=== PATIENT | male | born 1940 | race Caucasian/White ===

== ENCOUNTER 2020-10-26 18:31 | Observation (INO) | payer MEDICARE ==
[2020-10-26] MEDS ORDERED: Sodium Chloride 0.9% 1000 ML 1,000 ML IV STA ×2 (18:40→20:31)
[2020-10-26] MEDS ORDERED: Zofran 4 MG/2 ML VIAL IV ONE (18:40)
[2020-10-26] MEDS ORDERED: Sodium Chloride 0.9% 1000 ML 1,000 ML ONE ×2 (18:41→20:29)
[2020-10-26] MEDS ORDERED: Zofran 4 MG/2 ML VIAL ONE (18:41)
[2020-10-26 18:56] LABS: Absolute Neutrophil Ct (ANC) 5.41 (1.4-6.9); BASOPHIL % 0.3 % (0.0-0.4); Basophil (Absolute #) 0.02 (0-0.4); Eosinophil % 0.6 % (0.00-5.0); Eosinophil (Absolute #) 0.04 (0-0.5); Lymphocyte (Absolute #) 0.94 (1.0-4.6); Lymphocytes % 13.8 % (24.0-44.0); Mean Cell Volume 91.3 fl (78-100); Mean Corpuscular Hemoglobin 29.7 pg (26-32); Mean Corpuscular Hgb Concent. 32.5 g/dl (32-36); Monocyte (Absolute #) 0.38 (0.0-1.3); Monocytes % 5.6 % (0.0-12.0); Neutrophil % 79.7 % (36.0-66.0); Platelet Count 124 K/mm3 (150-450); Red Blood Count 4.38 M/mm3 (4.1-5.6); White Blood Count 6.8 K/mm3 (4.0-10.5)
[2020-10-26 19:03] LABS: INR 1.17 (0.8-3.0); PROTIME 13.2 SECONDS (8.83-12.87)
[2020-10-26 19:07] LABS: ALBUMIN 4.4 g/dL (3.5-5.0); ANION GAP 20.5 MEQ/L (5-15); BILIRUBIN,TOTAL 1.5 mg/dL (0.2-1.3); Calcium 9.7 mg/dL (8.4-10.2); Creatinine 1 1.97 mg/dL (0.66-1.25); EST GLOMERULAR FILTRATION RATE 34.9 ML/MIN; Potassium 4.2 mmol/L (3.5-5.1); Total Protein 7.4 g/dL (6.3-8.2)
[2020-10-26] MEDS ORDERED: Hydromorphone 1 mg/ml Injection IV ONE (19:21)
[2020-10-26] MEDS ORDERED: Hydromorphone 1 mg/ml Injection ONE (19:25)
[2020-10-26 20:23] LABS: Appearance CLEAR (CLEAR); Bilirubin NEGATIVE (NEGATIVE); Blood NEGATIVE Ery/ul (0-5); Glucose NEGATIVE (NEGATIVE); Ketones TRACE (NEGATIVE); Leukocyte Esterase NEGATIVE (NEGATIVE); Mucus SLIGHT /HPF (NEGATIVE); Nitrite NEGATIVE (NEGATIVE); Protein,Urine Dip NEGATIVE (Negative); Urobilinogen NEGATIVE mg/dL (0-1)
--- NOTE | 2020-10-26 21:18 | ERPHSYRPT ---
- History of Present Illness Time Seen by Provider: 10/26/20 18:50 Historian: patient Exam Limitations: no limitations Patient Subjective Stated Complaint: pt here for vomiting dark red blood and has blood in stools.also co pain to abd. pt is a poor historian. Triage Nursing Assessment: pt alert, arrived per wc, resp easy,skin w/d/p. abd soft but tender to touch Physician History: Patient is a an 80-year-old male who presents with a weeks worth of abdominal pain nausea and vomiting his pain increased especially after eating. He also says he has been spitting up what looks to him to be blood and see also claims t o have some blood in his stools. He does have a history of prostate cancer diabetes hypertension hyperlipidemia and pulmonary emboli in the past. He is on Eliquis presently has anticoagulation. He denies any fever or chills but has had some sweats he rates his pain 10 of 10. Timing/Duration: week(s) (1) Activities at Onset: none Quality: cramping Abdominal Pain Onset Location: RUQ Pain Radiation: periumbilical Severity of Pain-Max: severe Severity of Pain-Current: mild Modifying Factors: Improves With: eating, urinating Associated Symptoms: diaphoresis, nausea, vomiting Previous symptoms: no prior history Allergies/Adverse Reactions: Penicillins Allergy (Verified 10/26/20 18:41) Hives Sulfa (Sulfonamide Antibiotics) [Sulfa(Sulfonamide Antibiotics)] Allergy (Verified 10/26/20 18:41) Hives Hx Tetanus, Diphtheria Vaccination/Date Given: Yes Hx Influenza Vaccination/Date Given: No Hx Pneumococcal Vaccination/Date Given: Yes Immunizations Up to Date: Yes Travel Risk - International Travel Have you traveled outside of the country in past 3 weeks: No - Coronavirus Screening Are you exhibiting any of the following symptoms?: No Close contact with a COVID-19 positive Pt in past 14-21 Days: No - Review of Systems Constitutional: Night Sweats, No Fever, No Chills Eyes: No Symptoms Ears, Nose, & Throat: No Symptoms Respiratory: No Cough, No Dyspnea Cardiac: No Chest Pain, No Edema, No Syncope Abdominal/Gastrointestinal: Abdominal Pain, Nausea, Vomiting, No Diarrhea Genitourinary Symptoms: Hesitancy, Urinary Retention, No Dysuria Musculoskeletal: No Back Pain, No Neck Pain Skin: No Rash Neurological: No Dizziness, No Focal Weakness, No Sensory Changes Psychological: No Symptoms Endocrine: No Symptoms All Other Systems: Reviewed and Negative - Past Medical History Pertinent Past Medical History: Yes Neurological History: No Pertinent History ENT History: No Pertinent History Cardiac History: Arrhythmia, Congestive Heart Failure, Hypertension Respiratory History: CHF Endocrine Medical History: Diabetes Type II Musculoskeletal History: No Pertinent History GI Medical History: No Pertinent History History: No Pertinent History Psycho-Social History: No Pertinent History Male Reproductive Disorders: Prostate Cancer Other Medical History: PAST PE - Past Surgical History Past Surgical History: No Neuro Surgical History: No Pertinent History Cardiac: No Pertinent History Respiratory: No Pertinent History Gastrointestinal: No Pertinent History Genitourinary: No Pertinent History Musculoskeletal: No Pertinent History Male Surgical History: No Pertinent History Other Surgical History: TOENAIL SX - Social History Smoking Status: Never smoker Exposure to second hand smoke: Yes Alcohol Use: Socially Drug Use: none Patient Lives Alone: Yes Significant Family History: diabetes, hypertension - Nursing Vital Signs Nursing Vital Signs: Initial Vital Signs Temperature 97.3 F 10/26/20 18:32 Respiratory Rate 20 10/26/20 18:32 Blood Pressure 136/87 10/26/20 18:32 O2 Sat by Pulse Oximetry 100 10/26/20 18:32 Pain Scale Pain Intensity 6 - Physical Exam General Appearance: moderate distress, alert Eye Exam: PERRL/EOMI, eyes nml inspection Ears, Nose, Throat Exam: normal ENT inspection, pharynx normal, moist mucous membranes Neck Exam: normal inspection, non-tender, supple, full range of motion Respiratory Exam: normal breath sounds, lungs clear, No respiratory distress Cardiovascular Exam: regular rate/rhythm, normal heart sounds Gastrointestinal/Abdomen Exam: tenderness, distention (Upper quadrant generalized distention), guarding, other (ST Mariscal sign), No mass Male Genitalia Exam: normal genitalia Back Exam: normal inspection, normal range of motion, No CVA tenderness, No vertebral tenderness Extremity Exam: normal inspection, normal range of motion, pelvis stable Neurologic Exam: alert, oriented x 3, cooperative, normal mood/affect, nml cerebellar function, sensation nml, No motor deficits Skin Exam: normal color, warm, dry SpO2 Interpretation: normal SpO2: 100 O2 Delivery: Room Air - Course Nursing assessment & vital signs reviewed: Yes EKG Interpreted by Me: RATE, Sinus Rhythm, NORMAL AXIS, NORMAL INTERVALS, NORMAL QRS, Non-specific ST Changes, Other (No APCs) - Radiology Exams Chest X-ray Interpretation: Interpreted by me, Negative - CT Exams Abdomen/Pelvis CT Interpretation: Other (Preliminary report from radiology small hiatal hernia mild distention of the gallbladder with multiple stones largest measuring 9 mm. A 13.2 cm splenomegaly. Mild diffuse fecal stasis. Bilateral renal cysts with the largest in the left kidney measuring 6.6 cm. Markedly distended urinary bladder.) Ordered Tests: Active Orders 24 hr Category Date Time Status Fiber Optics Engineer STAT Care 10/26/20 19:23 Active EKG-ER Only STAT Care 10/26/20 18:[address] [Catheter-[place] Way] STAT Care 10/26/20 20:36 Active IV Insertion STAT Care 10/26/20 18:40 Active IV Insertion-2nd Peripheral STAT Care 10/26/20 19:23 Active POCT Glucose Check STAT Care 10/26/20 18:47 Active ABDOMEN AND PELVIS W/0 CONTRAS [CT] Stat Exams 10/26/20 19:24 Taken CHEST 1 VIEW (PORTABLE) Stat Exams 10/26/20 18:40 Taken AMYLASE Stat Lab 10/26/20 18:40 Completed CBC W DIFF Stat Lab 10/26/20 18:40 Completed CMP Stat Lab 10/26/20 18:40 Completed CULTURE,URINE Stat Lab 10/26/20 20:37 Ordered FECAL OCCULT BLOOD - SCREENING Stat Lab 10/26/20 18:45 Completed LIPASE Stat Lab 10/26/20 18:40 Completed Lactic Acid Stat Lab 10/26/20 18:40 Completed Lactic Acid Stat Lab 10/26/20 20:55 Completed POCT GLUCOSE Stat Lab 10/26/20 18:45 Completed PROTIME WITH INR Stat Lab 10/26/20 18:40 Completed TROPONIN Q3H Lab 10/26/20 18:40 Completed TROPONIN Q3H Lab 10/26/20 21:00 Received TROPONIN Q3H Lab 10/27/20 00:45 Ordered TROPONIN Q3H Lab 10/27/20 03:45 Ordered TROPONIN Q3H Lab 10/27/20 06:45 Ordered UA W/RFX UR CULTURE Stat Lab 10/26/20 20:00 Completed UA W/RFX UR CULTURE Stat Lab 10/26/20 20:38 Ordered Medication Summary Generic Name Dose Route Start Last Admin Trade Name Freq PRN Reason Stop Dose Admin Sodium Chloride 1,000 mls @ 999 mls/hr 10/26/20 20:31 10/26/20 20:32 Sodium Chloride 0.9% 1000 Ml IV 10/26/20 21:31 999 mls/hr .Q1H1M STA Administration Discontinued Medications Generic Name Dose Route Start Last Admin Trade Name Jagq PRN Reason Stop Dose Admin Hydromorphone HCl 1 mg 10/26/20 19:21 10/26/20 19:26 Hydromorphone 1 Mg/Ml Injection IV 10/26/20 19:22 1 mg STAT ONE Administration Hydromorphone HCl Confirm 10/26/20 19:25 Hydromorphone 1 Mg/Ml Injection Administered 10/26/20 19:26 Dose 1 mg .ROUTE .STK-MED ONE Sodium Chloride 1,000 mls @ 999 mls/hr 10/26/20 18:40 10/26/20 19:47 Sodium Chloride 0.9% 1000 Ml IV 10/26/20 19:40 Infused .Q1H1M STA Infusion Sodium Chloride Confirm 10/26/20 18:41 Sodium Chloride 0.9% 1000 Ml Administered 10/26/20 18:42 Dose 1,000 mls @ ud .ROUTE .STK-MED ONE Sodium Chloride Confirm 10/26/20 20:29 Sodium Chloride 0.9% 1000 Ml Administered 10/26/20 20:30 Dose 1,000 mls @ ud .ROUTE .STK-MED ONE Ondansetron HCl 4 mg 10/26/20 18:40 10/26/20 18:46 Zofran 4 Mg/2 Ml Vial IV 10/26/20 18:41 4 mg STAT ONE Administration Ondansetron HCl Confirm 10/26/20 18:41 Zofran 4 Mg/2 Ml Vial Administered 10/26/20 18:42 Dose 4 mg .ROUTE .STK-MED ONE Lab/Rad Data: Laboratory Result Diagrams 10/26/20 18:40 10/26/20 18:40 Laboratory Results 10/26/20 10/26/20 10/26/20 Range/Units 20:55 20:00 18:45 WBC (4.0-10.5) K/mm3 RBC (4.1-5.6) M/mm3 Hgb (12.5-18.0) gm/dl Hct (42-50) % MCV (78-100) fl MCH (26-32) pg MCHC (32-36) g/dl RDW (11.5-14.0) % Plt Count (150-450) K/mm3 MPV (7.5-11.0) fl Gran % (36.0-66.0) % Eos # (Auto) (0-0.5) Absolute Lymphs (auto) (1.0-4.6) Absolute Monos (auto) (0.0-1.3) Lymphocytes % (24.0-44.0) % Monocytes % (0.0-12.0) % Eosinophils % (0.00-5.0) % Basophils % (0.0-0.4) % Absolute Granulocytes (1.4-6.9) Basophils # (0-0.4) PT (8.83-12.87) SECONDS INR (0.8-3.0) Sodium (137-145) mmol/L Potassium (3.5-5.1) mmol/L Chloride (98-107) mmol/L Carbon Dioxide (22-30) mmol/L Anion Gap (5-15) MEQ/L BUN (9-20) mg/dL Creatinine (0.66-1.25) mg/dL Estimated GFR ML/MIN Glucose (74-106) mg/dL POC Glucometer 179 H (74 to 106) mg/dL Lactic Acid 3.3 H (0.4-2.0) Calcium (8.4-10.2) mg/dL Total Bilirubin (0.2-1.3) mg/dL AST (17-59) U/L ALT (0-50) U/L Alkaline Phosphatase (38-126) U/L Troponin I (0.000-0.034) ng/mL Serum Total Protein (6.3-8.2) g/dL Albumin (3.5-5.0) g/dL Amylase (30-110) U/L Lipase (23-300) U/L Urine Color YELLOW (YELLOW) Urine Appearance CLEAR (CLEAR) Urine pH 5.0 (5-6) Ur Specific [place] 1.020 (1.005-1.025) Urine Protein NEGATIVE (Negative) Urine Ketones TRACE (NEGATIVE) Urine Blood NEGATIVE (0-5) Sarbjit/ul Urine Nitrite NEGATIVE (NEGATIVE) Urine Bilirubin NEGATIVE (NEGATIVE) Urine Urobilinogen NEGATIVE (0-1) mg/dL Ur Leukocyte Esterase NEGATIVE (NEGATIVE) Urine WBC (Auto) NONE (0-5) /HPF Urine RBC (Auto) NONE (0-2) /HPF U Hyaline Cast (Auto) 11-25 (0-2) /LPF U Epithel Cells (Auto) NONE (FEW) /HPF Urine Bacteria (Auto) NONE (NEGATIVE) /HPF Urine Mucus (Auto) SLIGHT (NEGATIVE) /HPF Urine Culture Reflexed NO (NO) Urine Glucose NEGATIVE (NEGATIVE) mg/dL Stool Occult Blood (NEGATIVE) 10/26/20 10/26/20 10/26/20 Range/Units 18:45 18:40 18:40 WBC (4.0-10.5) K/mm3 RBC (4.1-5.6) M/mm3 Hgb (12.5-18.0) gm/dl Hct (42-50) % MCV (78-100) fl MCH (26-32) pg MCHC (32-36) g/dl RDW (11.5-14.0) % Plt Count (150-450) K/mm3 MPV (7.5-11.0) fl Gran % (36.0-66.0) % Eos # (Auto) (0-0.5) Absolute Lymphs (auto) (1.0-4.6) Absolute Monos (auto) (0.0-1.3) Lymphocytes % (24.0-44.0) % Monocytes % (0.0-12.0) % Eosinophils % (0.00-5.0) % Basophils % (0.0-0.4) % Absolute Granulocytes (1.4-6.9) Basophils # (0-0.4) PT 13.2 H (8.83-12.87) SECONDS INR 1.17 (0.8-3.0) Sodium (137-145) mmol/L Potassium (3.5-5.1) mmol/L Chloride (98-107) mmol/L Carbon Dioxide (22-30) mmol/L Anion Gap (5-15) MEQ/L BUN (9-20) mg/dL Creatinine (0.66-1.25) mg/dL Estimated GFR ML/MIN Glucose (74-106) mg/dL POC Glucometer (74 to 106) mg/dL Lactic Acid (0.4-2.0) Calcium (8.4-10.2) mg/dL Total Bilirubin (0.2-1.3) mg/dL AST (17-59) U/L ALT (0-50) U/L Alkaline Phosphatase (38-126) U/L Troponin I < 0.012 (0.000-0.034) ng/mL Serum Total Protein (6.3-8.2) g/dL Albumin (3.5-5.0) g/dL Amylase (30-110) U/L Lipase (23-300) U/L Urine Color (YELLOW) Urine Appearance (CLEAR) Urine pH (5-6) Ur Specific [place] (1.005-1.025) Urine Protein (Negative) Urine Ketones (NEGATIVE) Urine Blood (0-5) Sarbjit/ul Urine Nitrite (NEGATIVE) Urine Bilirubin (NEGATIVE) Urine Urobilinogen (0-1) mg/dL Ur Leukocyte Esterase (NEGATIVE) Urine WBC (Auto) (0-5) /HPF Urine RBC (Auto) (0-2) /HPF U Hyaline Cast (Auto) (0-2) /LPF U Epithel Cells (Auto) (FEW) /HPF Urine Bacteria (Auto) (NEGATIVE) /HPF Urine Mucus (Auto) (NEGATIVE) /HPF Urine Culture Reflexed (NO) Urine Glucose (NEGATIVE) mg/dL Stool Occult Blood NEGATIVE (NEGATIVE) 10/26/20 10/26/20 10/26/20 Range/Units 18:40 18:40 18:40 WBC 6.8 (4.0-10.5) K/mm3 RBC 4.38 (4.1-5.6) M/mm3 Hgb 13.0 (12.5-18.0) gm/dl Hct 40.0 L (42-50) % MCV 91.3 (78-100) fl MCH 29.7 (26-32) pg MCHC 32.5 (32-36) g/dl RDW 13.0 (11.5-14.0) % Plt Count 124 L (150-450) K/mm3 MPV 13.0 H (7.5-11.0) fl Gran % 79.7 H (36.0-66.0) % Eos # (Auto) 0.04 (0-0.5) Absolute Lymphs (auto) 0.94 L (1.0-4.6) Absolute Monos (auto) 0.38 (0.0-1.3) Lymphocytes % 13.8 L (24.0-44.0) % Monocytes % 5.6 (0.0-12.0) % Eosinophils % 0.6 (0.00-5.0) % Basophils % 0.3 (0.0-0.4) % Absolute Granulocytes 5.41 (1.4-6.9) Basophils # 0.02 (0-0.4) PT (8.83-12.87) SECONDS INR (0.8-3.0) Sodium 136 L (137-145) mmol/L Potassium 4.2 (3.5-5.1) mmol/L Chloride 104 (98-107) mmol/L Carbon Dioxide 16 L* (22-30) mmol/L Anion Gap 20.5 H (5-15) MEQ/L BUN 39 H (9-20) mg/dL Creatinine 1.97 H (0.66-1.25) mg/dL Estimated GFR 34.9 ML/MIN Glucose 191 H (74-106) mg/dL POC Glucometer (74 to 106) mg/dL Lactic Acid 5.1 H (0.4-2.0) Calcium 9.7 (8.4-10.2) mg/dL Total Bilirubin 1.50 H (0.2-1.3) mg/dL AST 35 (17-59) U/L ALT 11 (0-50) U/L Alkaline Phosphatase 103 (38-126) U/L Troponin I (0.000-0.034) ng/mL Serum Total Protein 7.4 (6.3-8.2) g/dL Albumin 4.4 (3.5-5.0) g/dL Amylase 81 (30-110) U/L Lipase 89 (23-300) U/L Urine Color (YELLOW) Urine Appearance (CLEAR) Urine pH (5-6) Ur Specific [place] (1.005-1.025) Urine Protein (Negative) Urine Ketones (NEGATIVE) Urine Blood (0-5) Sarbjit/ul Urine Nitrite (NEGATIVE) Urine Bilirubin (NEGATIVE) Urine Urobilinogen (0-1) mg/dL Ur Leukocyte Esterase (NEGATIVE) Urine WBC (Auto) (0-5) /HPF Urine RBC (Auto) (0-2) /HPF U Hyaline Cast (Auto) (0-2) /LPF U Epithel Cells (Auto) (FEW) /HPF Urine Bacteria (Auto) (NEGATIVE) /HPF Urine Mucus (Auto) (NEGATIVE) /HPF Urine Culture Reflexed (NO) Urine Glucose (NEGATIVE) mg/dL Stool Occult Blood (NEGATIVE) - Progress Progress: improved Progress Note: 10/26/20 21:25 Patient did better after a Way catheter was anchored but still had right upper quadrant pain. We discussed the situation with Dr. Aniyah caraballo and he asked us to contact the [facility] to see if they would be willing to consult on this patient. We spoke with Dr. Augustus [facility] and he said yes they do plan to hold the Eliquis and do an ultrasound tomorrow. - Departure Departure Disposition: In-patient Admission Clinical Impression: Biliary colic symptom, Cholelithiasis, Urinary retention, Diabetes mellitus type II, uncontrolled, Parkinson disease Condition: Good Critical Care Time: No Referrals: MYRTLE DUGGAN MD [Primary Care Provider] -
[2020-10-26] MEDS ORDERED: Zofran 4 MG/2 ML VIAL IV PRN (21:31)
[2020-10-26] MEDS ORDERED: Hydromorphone 1 mg/ml Injection IV PRN (21:31)
[2020-10-26 21:33] LABS: Appearance CLEAR (CLEAR); Bilirubin NEGATIVE (NEGATIVE); Blood NEGATIVE Ery/ul (0-5); Glucose NEGATIVE (NEGATIVE); Ketones TRACE (NEGATIVE); Leukocyte Esterase NEGATIVE (NEGATIVE); Nitrite NEGATIVE (NEGATIVE); Protein,Urine Dip NEGATIVE (Negative); Urobilinogen NEGATIVE mg/dL (0-1)
[2020-10-26 22:32] LABS: INFLUENZA A NEGATIVE (NEGATIVE); INFLUENZA B NEGATIVE (NEGATIVE); RESPIRATORY SYNCTIAL VIRUS NEGATIVE (Negative)
[2020-10-27] MEDS: Sodium Chloride 0.9% 1000 ML 1,000 ML IV SCH ×3 (00:58→22:02)
[2020-10-27 04:55] LABS: Absolute Neutrophil Ct (ANC) 5.32 (1.4-6.9); BASOPHIL % 0.3 % (0.0-0.4); Basophil (Absolute #) 0.02 (0-0.4); Eosinophil % 0.7 % (0.00-5.0); Eosinophil (Absolute #) 0.05 (0-0.5); Hematocrit 36.9 % (42-50); Lymphocyte (Absolute #) 1.56 (1.0-4.6); Lymphocytes % 20.7 % (24.0-44.0); Mean Cell Volume 91.6 fl (78-100); Mean Corpuscular Hemoglobin 29.8 pg (26-32); Mean Corpuscular Hgb Concent. 32.5 g/dl (32-36); Mean Platelet Volume 12.8 fl (7.5-11.0); Monocyte (Absolute #) 0.58 (0.0-1.3); Monocytes % 7.7 % (0.0-12.0); Neutrophil % 70.6 % (36.0-66.0); Platelet Count 125 K/mm3 (150-450); Red Blood Count 4.03 M/mm3 (4.1-5.6); Red Cell Distribution Width 12.9 % (11.5-14.0); White Blood Count 7.5 K/mm3 (4.0-10.5)
[2020-10-27 05:25] LABS: ALBUMIN 3.6 g/dL (3.5-5.0); BILIRUBIN,TOTAL 1.2 mg/dL (0.2-1.3); Calcium 8.9 mg/dL (8.4-10.2); Creatinine 1 1.7 mg/dL (0.66-1.25); EST GLOMERULAR FILTRATION RATE 41.4 ML/MIN; Total Protein 6.3 g/dL (6.3-8.2)
[2020-10-27] MEDS ORDERED: Glutose 15 GM ORAL GEL PO ONE ×2 (06:40→15:43)
[2020-10-27] MEDS ORDERED: D50W 50 ml Abboject IV ONE ×2 (07:25→16:11)
--- NOTE | 2020-10-27 08:41 | XRAY ---
Indication: Abdomen pain, nausea, vomiting, and bloody red stools. Multiple contiguous axial images obtained through the abdomen and pelvis without contrast as ordered. Comparison: None Lung bases demonstrates minimal mild left base subsegmental atelectasis and medial right base fibrosis/scarring. No infiltrate or effusion. Heart is not enlarged. Small hiatal hernia with fluid in the visualized distal esophagus presumed from gastroesophageal reflux. Noncontrasted stomach and bowel loops appear nonobstructed. Normal appendix. Mild diffuse scattered colonic fecal debris throughout and mild scattered descending/sigmoid diverticulosis. No free fluid/air. Gallbladder is mildly distended with multiple gallstones largest 9 mm. No abnormal biliary distention. There are a few bilateral renal cysts, largest right lower pole measuring 6.6 cm. Urinary bladder is markedly distended concerning for outlet obstruction versus neurogenic bladder. No hydronephrosis or hydroureter. A few tiny hepatic/splenic calcified granulomas, 13.2 cm splenomegaly, and benign chunky appearing prostate calcifications. Remaining liver, gallbladder, pancreas, spleen, adrenal glands, kidneys, ureters, and bladder appear unremarkable for noncontrast exam. Mild scattered aortoiliac calcifications without AAA. Osseous structures intact with mild/moderate degenerative changes throughout the thoracolumbar spine. Small fatty right inguinal hernia. Impression: 1. Markedly distended urinary bladder. Rule out outlet obstruction versus neurogenic bladder. 2. Mild distended gallbladder with gallstones. Gallbladder sonogram may yield further information if clinically warranted. 3. Mild diffuse fecal stasis and scattered colonic diverticulosis. 4. Small hiatal hernia with fluid in distal esophagus presumed from gastroesophageal reflux. 5. Incidental splenomegaly, bilateral renal cysts, small fatty right inguinal hernia, chronic bony findings, and old granulomatous disease.
--- NOTE | 2020-10-27 08:43 | XRAY ---
Indication: Short of breath and vomiting. Comparison: April 06, 2015. Portable chest better inflated again with left mid to lower lung discoid atelectasis/scarring. No focal infiltrate, consolidation, or large effusion. Heart is not enlarged. Bony thorax intact again with mild degenerative changes. Impression: Nonacute chest with chronic features.
--- NOTE | 2020-10-27 08:45 | XRAY ---
Indication: Biliary colic. Limited right upper quadrant sonogram performed. Comparison: None Pancreas not well-seen due to overlying bowel gas. Gallbladder mildly distended with a few small gallstones in the dependent portion, largest measuring 1.6 cm. No abnormal gallbladder wall thickening or pericholecystic fluid. Common bile duct measures 4.1 mm. No intrahepatic biliary distention. Visualized liver homogeneous in echogenicity without ascites. Right kidney measures 13.4 cm in length and demonstrates a few cysts, largest 5.5 x 5.7 x 6.6 cm inferiorly. No solid renal mass or hydronephrosis. Impression: Nonvisualization pancreas. Cholelithiasis without cholecystitis. Right renal cysts. Comment: Preliminary report was given.
[2020-10-27] MEDS ORDERED: HYPROMELLOSE OP PRN (09:09)
[2020-10-27] MEDS ORDERED: GLYCERIN OP PRN (09:09)
[2020-10-27] MEDS ORDERED: PEG OP PRN (09:09)
[2020-10-27] MEDS: LEVOFLOXACIN 750MG/150ML D5W 750 MG/150 ML BAG IV SCH (09:12)
[2020-10-27] MEDS ORDERED: Artificial Tears 15 ML OP PRN (09:18)
[2020-10-27] MEDS: Glucophage 500 MG PO SCH ×2 (09:22→16:40)
[2020-10-27] MEDS: AMARYL 4 MG PO SCH (09:23)
[2020-10-27] MEDS: Lantus Insulin SQ SCH (09:23)
[2020-10-27] MEDS: hydroDIURIL 25 MG PO SCH (09:40)
[2020-10-27] MEDS: Zestril 20 MG PO SCH (09:41)
[2020-10-27] MEDS: Aldactone 25 MG PO SCH (09:41)
[2020-10-27] MEDS: NORVASC 5 MG PO SCH (09:41)
[2020-10-27] MEDS: Sinemet 10/100 MG PO SCH ×3 (09:42→22:05)
[2020-10-27] MEDS: ZOCOR 20MG PO SCH (09:42)
[2020-10-27] MEDS ORDERED: NON-FORMULARY ITEM (Amlodipine Besylate [Norvasc] 2.5 MG) PO SCH (10:00)
[2020-10-27] MEDS ORDERED: NON-FORMULARY ITEM (Lisinopril/Hydrochlorothiazide [Lisinopril-Hctz 20-25 Mg Tab] 1 EACH) PO SCH (10:00)
[2020-10-27] MEDS ORDERED: INSULIN GLARGINE HUM REC ANLOG 35 UNIT SQ SCH (10:00)
[2020-10-27] MEDS ORDERED: NON-FORMULARY ITEM (Metformin Hcl [Glucophage] 1,000 MG) PO SCH (10:00)
[2020-10-27] MEDS ORDERED: Sinemet 25/250 MG PO SCH (10:00)
[2020-10-27] MEDS ORDERED: LEVOFLOXACIN 750MG/150ML D5W 750 MG/150 ML BAG IV SCH (10:00)
[2020-10-27] MEDS ORDERED: Golytely Solution 4000 ML ONE (17:47)
[2020-10-27] MEDS ORDERED: Golytely Solution 4000 ML PO ONE (18:15)
--- NOTE | 2020-10-27 20:19 | PCM.HP ---
History of Present Illness - Chief Complaint Chief Complaint: abdominal pain for 2 days History of Present Illness: Mr.MOODY ALEJO is a 80 year old male.who presents with a weeks worth of abdominal pain nausea and vomiting his pain increased especially after eating. He also says he has been spitting up what looks to him to be blood and see also claims to have some blood in his stools. He does have a history of prostate cancer diabetes hypertension hyperlipidemia and pulmonary emboli in the past. He is on Eliquis presently has anticoagulation. He denies any fever or chills but has had some sweats he rates his pain 10 of 10. - Review of Systems Constitutional: No Fever, No Chills Eyes: No Symptoms Ears, Nose, & Throat: No Symptoms Respiratory: No Cough, No Short Of Breath Cardiac: No Chest Pain, No Edema, No Syncope Abdominal/Gastrointestinal: Abdominal Pain, Nausea, Vomiting, No Diarrhea Genitourinary Symptoms: Hesitancy, Urinary Retention, No Dysuria Musculoskeletal: No Back Pain, No Neck Pain Skin: No Rash Neurological: No Dizziness, No Focal Weakness, No Sensory Changes Psychological: No Symptoms Endocrine: No Symptoms Hematologic/Lymphatic: No Symptoms Immunological/Allergic: No Symptoms Medications & Allergies Home Medications: Home Medication List Simvastatin 20 mg PO DAILY #0 tablet 04/09/15 [Rx Confirmed 10/26/20] Spironolactone 25 mg [Aldactone 25 MG] 25 mg PO DAILY #0 tablet 04/09/15 [Rx Confirmed 10/26/20] Terazosin HCl 1 mg [Hytrin 1 mg] 2 mg PO HS #0 cap 04/09/15 [Rx Confirmed 10/26/20] Amlodipine Besylate [Norvasc] 2.5 mg PO DAILY 10/27/20 [History Confirmed 10/27/20] Carbidopa/Levodopa [Sinemet 25-250 mg Tablet] 2 each PO TID 10/27/20 [History Confirmed 10/27/20] Glimepiride 4 mg [Amaryl 4 mg] 4 mg PO DAILY 10/27/20 [History Confirmed 10/27/20] Insulin Glargine,Hum.rec.anlog [Coby Gandhi] 35 unit SQ DAILY 10/27/20 [History Confirmed 10/27/20] Lisinopril/Hydrochlorothiazide [Lisinopril-Hctz 20-25 mg Tab] 1 each PO DAILY 10/27/20 [History Confirmed 10/27/20] Metformin HCl [Glucophage] 1,000 mg PO BID 10/27/20 [History Confirmed 10/27/20] Peg 400/Hypromellose/Glycerin [Dry Eye Relief Eye Drops] 1 drop OP Q4HPRN PRN 10/27/20 [History Confirmed 10/27/20] Allergies/Adverse Reactions: Allergies Allergy/AdvReac Type Severity Reaction Status Date / Time Penicillins Allergy Hives Verified 10/27/20 00:32 Sulfa (Sulfonamide Allergy Hives Verified 10/27/20 00:32 Antibiotics) [Sulfa(Sulfonamide Antibiotics)] - Past Medical History Past Medical History: Yes Neurological History: No Pertinent History ENT History: No Pertinent History Cardiac History: Arrhythmia, Hypertension Respiratory History: No Pertinent History, Pulmonary Embolism Endocrine Medical History: Diabetes Type II Musculoskelatal History: No Pertinent History GI Medical History: No Pertinent History History: No Pertinent History Pyscho-Social History: No Pertinent History Male Reproductive Disorders: Prostate Cancer Comment: PAST PE - Past Surgical History Past Surgical History: No Neuro Surgical History: No Pertinent History Cardiac History: No Pertinent History Respiratory Surgery: No Pertinent History GI Surgical History: No Pertinent History Genitourinary Surgical Hx: No Pertinent History Musculskeletal Surgical Hx: No Pertinent History Male Surgical History: No Pertinent History Other Surgical History: TOENAIL SX - Social History Smoking Status: Never smoker Exposure to second hand smoke: No Alcohol: None Drug Use: none Significant Family History: diabetes, hypertension - Physical Exam Vital Signs: Vital Signs - 24 hr Temp Pulse Resp BP Pulse Ox 10/27/20 20:00 96.1 F 75 18 142/65 97 10/27/20 15:42 98.3 F 77 20 140/72 98 10/27/20 12:00 97.3 F 75 15 141/67 97 10/27/20 07:31 98.3 F 85 20 118/61 96 10/27/20 03:34 98.9 F 82 18 128/64 97 10/27/20 00:09 98.1 F 90 178/81 99 10/26/20 23:32 98.1 F 90 20 178/81 99 10/26/20 23:03 98.1 F 90 20 178/81 99 10/26/20 23:00 84 18 161/79 99 10/26/20 21:34 84 18 171/98 96 10/26/20 21:28 100 10/26/20 21:00 77 20 174/84 100 General Appearance: no apparent distress, alert Neurologic Exam: alert, oriented x 3, cooperative, normal mood/affect, nml cerebellar function, nml station & gait, sensation nml, No motor deficits Eye Exam: PERRL/EOMI, eyes nml inspection Ears, Nose, Throat Exam: normal ENT inspection, TMs normal, pharynx normal, moist mucous membranes Neck Exam: normal inspection, non-tender, supple, full range of motion Respiratory Exam: normal breath sounds, lungs clear, No respiratory distress Cardiovascular Exam: regular rate/rhythm, normal heart sounds, normal peripheral pulses Gastrointestinal/Abdomen Exam: soft, tenderness, No mass Back Exam: normal inspection, normal range of motion, No CVA tenderness, No vertebral tenderness Extremity Exam: normal inspection, normal range of motion, pelvis stable Skin Exam: normal color, warm, dry, No rash Lymphatic Exam: No adenopathy Results - Labs Lab/Micro Results: Lab Results-Last 24 Hours 10/26/20 10/26/20 10/26/20 Range/Units 20:00 20:38 20:55 WBC (4.0-10.5) K/mm3 RBC (4.1-5.6) M/mm3 Hgb (12.5-18.0) gm/dl Hct (42-50) % MCV (78-100) fl MCH (26-32) pg MCHC (32-36) g/dl RDW (11.5-14.0) % Plt Count (150-450) K/mm3 MPV (7.5-11.0) fl Gran % (36.0-66.0) % Eos # (Auto) (0-0.5) Absolute Lymphs (auto) (1.0-4.6) Absolute Monos (auto) (0.0-1.3) Lymphocytes % (24.0-44.0) % Monocytes % (0.0-12.0) % Eosinophils % (0.00-5.0) % Basophils % (0.0-0.4) % Absolute Granulocytes (1.4-6.9) Basophils # (0-0.4) Sodium (137-145) mmol/L Potassium (3.5-5.1) mmol/L Chloride (98-107) mmol/L Carbon Dioxide (22-30) mmol/L Anion Gap (5-15) MEQ/L BUN (9-20) mg/dL Creatinine (0.66-1.25) mg/dL Estimated GFR ML/MIN Glucose (74-106) mg/dL POC Glucometer (74 to 106) mg/dL Hemoglobin A1c (4.5-6.0) % Lactic Acid 3.3 H (0.4-2.0) Calcium (8.4-10.2) mg/dL Total Bilirubin (0.2-1.3) mg/dL AST (17-59) U/L ALT (0-50) U/L Alkaline Phosphatase (38-126) U/L Troponin I (0.000-0.034) ng/mL Serum Total Protein (6.3-8.2) g/dL Albumin (3.5-5.0) g/dL Urine Color YELLOW YELLOW (YELLOW) Urine Appearance CLEAR CLEAR (CLEAR) Urine pH 5.0 5.0 (5-6) Ur Specific Stephenson 1.020 1.020 (1.005-1.025) Urine Protein NEGATIVE NEGATIVE (Negative) Urine Ketones TRACE TRACE (NEGATIVE) Urine Blood NEGATIVE NEGATIVE (0-5) Sarbjit/ul Urine Nitrite NEGATIVE NEGATIVE (NEGATIVE) Urine Bilirubin NEGATIVE NEGATIVE (NEGATIVE) Urine Urobilinogen NEGATIVE NEGATIVE (0-1) mg/dL Ur Leukocyte Esterase NEGATIVE NEGATIVE (NEGATIVE) Urine WBC (Auto) NONE NONE (0-5) /HPF Urine RBC (Auto) NONE NONE (0-2) /HPF U Hyaline Cast (Auto) 11-25 (0-2) /LPF U Epithel Cells (Auto) NONE NONE (FEW) /HPF Urine Bacteria (Auto) NONE NONE (NEGATIVE) /HPF Urine Mucus (Auto) SLIGHT (NEGATIVE) /HPF Urine Culture Reflexed NO ORDERED SEPARATELY (NO) Urine Glucose NEGATIVE NEGATIVE (NEGATIVE) mg/dL Influenza Type A Ag (NEGATIVE) Influenza Type B Ag (NEGATIVE) RSV (PCR) (Negative) SARS-CoV-2 (PCR) (NEGATIVE) 10/26/20 10/26/20 10/27/20 Range/Units 21:00 21:50 00:45 WBC (4.0-10.5) K/mm3 RBC (4.1-5.6) M/mm3 Hgb (12.5-18.0) gm/dl Hct (42-50) % MCV (78-100) fl MCH (26-32) pg MCHC (32-36) g/dl RDW (11.5-14.0) % Plt Count (150-450) K/mm3 MPV (7.5-11.0) fl Gran % (36.0-66.0) % Eos # (Auto) (0-0.5) Absolute Lymphs (auto) (1.0-4.6) Absolute Monos (auto) (0.0-1.3) Lymphocytes % (24.0-44.0) % Monocytes % (0.0-12.0) % Eosinophils % (0.00-5.0) % Basophils % (0.0-0.4) % Absolute Granulocytes (1.4-6.9) Basophils # (0-0.4) Sodium (137-145) mmol/L Potassium (3.5-5.1) mmol/L Chloride (98-107) mmol/L Carbon Dioxide (22-30) mmol/L Anion Gap (5-15) MEQ/L BUN (9-20) mg/dL Creatinine (0.66-1.25) mg/dL Estimated GFR ML/MIN Glucose (74-106) mg/dL POC Glucometer (74 to 106) mg/dL Hemoglobin A1c (4.5-6.0) % Lactic Acid (0.4-2.0) Calcium (8.4-10.2) mg/dL Total Bilirubin (0.2-1.3) mg/dL AST (17-59) U/L ALT (0-50) U/L Alkaline Phosphatase (38-126) U/L Troponin I < 0.012 < 0.012 (0.000-0.034) ng/mL Serum Total Protein (6.3-8.2) g/dL Albumin (3.5-5.0) g/dL Urine Color (YELLOW) Urine Appearance (CLEAR) Urine pH (5-6) Ur Specific Stephenson (1.005-1.025) Urine Protein (Negative) Urine Ketones (NEGATIVE) Urine Blood (0-5) Sarbjit/ul Urine Nitrite (NEGATIVE) Urine Bilirubin (NEGATIVE) Urine Urobilinogen (0-1) mg/dL Ur Leukocyte Esterase (NEGATIVE) Urine WBC (Auto) (0-5) /HPF Urine RBC (Auto) (0-2) /HPF U Hyaline Cast (Auto) (0-2) /LPF U Epithel Cells (Auto) (FEW) /HPF Urine Bacteria (Auto) (NEGATIVE) /HPF Urine Mucus (Auto) (NEGATIVE) /HPF Urine Culture Reflexed (NO) Urine Glucose (NEGATIVE) mg/dL Influenza Type A Ag NEGATIVE (NEGATIVE) Influenza Type B Ag NEGATIVE (NEGATIVE) RSV (PCR) NEGATIVE (Negative) SARS-CoV-2 (PCR) NEGATIVE (NEGATIVE) 10/27/20 10/27/20 10/27/20 Range/Units 04:38 04:38 04:38 WBC 7.5 (4.0-10.5) K/mm3 RBC 4.03 L (4.1-5.6) M/mm3 Hgb 12.0 L (12.5-18.0) gm/dl Hct 36.9 L (42-50) % MCV 91.6 (78-100) fl MCH 29.8 (26-32) pg MCHC 32.5 (32-36) g/dl RDW 12.9 (11.5-14.0) % Plt Count 125 L (150-450) K/mm3 MPV 12.8 H (7.5-11.0) fl Gran % 70.6 H (36.0-66.0) % Eos # (Auto) 0.05 (0-0.5) Absolute Lymphs (auto) 1.56 (1.0-4.6) Absolute Monos (auto) 0.58 (0.0-1.3) Lymphocytes % 20.7 L (24.0-44.0) % Monocytes % 7.7 (0.0-12.0) % Eosinophils % 0.7 (0.00-5.0) % Basophils % 0.3 (0.0-0.4) % Absolute Granulocytes 5.32 (1.4-6.9) Basophils # 0.02 (0-0.4) Sodium 139 (137-145) mmol/L Potassium 4.0 (3.5-5.1) mmol/L Chloride 109 H (98-107) mmol/L Carbon Dioxide 22 (22-30) mmol/L Anion Gap 12.0 (5-15) MEQ/L BUN 39 H (9-20) mg/dL Creatinine 1.70 H (0.66-1.25) mg/dL Estimated GFR 41.4 ML/MIN Glucose 68 L (74-106) mg/dL POC Glucometer (74 to 106) mg/dL Hemoglobin A1c (4.5-6.0) % Lactic Acid (0.4-2.0) Calcium 8.9 (8.4-10.2) mg/dL Total Bilirubin 1.20 (0.2-1.3) mg/dL AST 34 (17-59) U/L ALT 13 (0-50) U/L Alkaline Phosphatase 76 (38-126) U/L Troponin I < 0.012 (0.000-0.034) ng/mL Serum Total Protein 6.3 (6.3-8.2) g/dL Albumin 3.6 (3.5-5.0) g/dL Urine Color (YELLOW) Urine Appearance (CLEAR) Urine pH (5-6) Ur Specific Stephenson (1.005-1.025) Urine Protein (Negative) Urine Ketones (NEGATIVE) Urine Blood (0-5) Sarbjit/ul Urine Nitrite (NEGATIVE) Urine Bilirubin (NEGATIVE) Urine Urobilinogen (0-1) mg/dL Ur Leukocyte Esterase (NEGATIVE) Urine WBC (Auto) (0-5) /HPF Urine RBC (Auto) (0-2) /HPF U Hyaline Cast (Auto) (0-2) /LPF U Epithel Cells (Auto) (FEW) /HPF Urine Bacteria (Auto) (NEGATIVE) /HPF Urine Mucus (Auto) (NEGATIVE) /HPF Urine Culture Reflexed (NO) Urine Glucose (NEGATIVE) mg/dL Influenza Type A Ag (NEGATIVE) Influenza Type B Ag (NEGATIVE) RSV (PCR) (Negative) SARS-CoV-2 (PCR) (NEGATIVE) 10/27/20 10/27/20 10/27/20 Range/Units 04:45 06:37 06:46 WBC (4.0-10.5) K/mm3 RBC (4.1-5.6) M/mm3 Hgb (12.5-18.0) gm/dl Hct (42-50) % MCV (78-100) fl MCH (26-32) pg MCHC (32-36) g/dl RDW (11.5-14.0) % Plt Count (150-450) K/mm3 MPV (7.5-11.0) fl Gran % (36.0-66.0) % Eos # (Auto) (0-0.5) Absolute Lymphs (auto) (1.0-4.6) Absolute Monos (auto) (0.0-1.3) Lymphocytes % (24.0-44.0) % Monocytes % (0.0-12.0) % Eosinophils % (0.00-5.0) % Basophils % (0.0-0.4) % Absolute Granulocytes (1.4-6.9) Basophils # (0-0.4) Sodium (137-145) mmol/L Potassium (3.5-5.1) mmol/L Chloride (98-107) mmol/L Carbon Dioxide (22-30) mmol/L Anion Gap (5-15) MEQ/L BUN (9-20) mg/dL Creatinine (0.66-1.25) mg/dL Estimated GFR ML/MIN Glucose (74-106) mg/dL POC Glucometer 63 L (74 to 106) mg/dL Hemoglobin A1c (4.5-6.0) % Lactic Acid 0.9 (0.4-2.0) Calcium (8.4-10.2) mg/dL Total Bilirubin (0.2-1.3) mg/dL AST (17-59) U/L ALT (0-50) U/L Alkaline Phosphatase (38-126) U/L Troponin I < 0.012 (0.000-0.034) ng/mL Serum Total Protein (6.3-8.2) g/dL Albumin (3.5-5.0) g/dL Urine Color (YELLOW) Urine Appearance (CLEAR) Urine pH (5-6) Ur Specific Stephenson (1.005-1.025) Urine Protein (Negative) Urine Ketones (NEGATIVE) Urine Blood (0-5) Sarbjit/ul Urine Nitrite (NEGATIVE) Urine Bilirubin (NEGATIVE) Urine Urobilinogen (0-1) mg/dL Ur Leukocyte Esterase (NEGATIVE) Urine WBC (Auto) (0-5) /HPF Urine RBC (Auto) (0-2) /HPF U Hyaline Cast (Auto) (0-2) /LPF U Epithel Cells (Auto) (FEW) /HPF Urine Bacteria (Auto) (NEGATIVE) /HPF Urine Mucus (Auto) (NEGATIVE) /HPF Urine Culture Reflexed (NO) Urine Glucose (NEGATIVE) mg/dL Influenza Type A Ag (NEGATIVE) Influenza Type B Ag (NEGATIVE) RSV (PCR) (Negative) SARS-CoV-2 (PCR) (NEGATIVE) 10/27/20 10/27/20 10/27/20 Range/Units 07:15 07:23 07:55 WBC (4.0-10.5) K/mm3 RBC (4.1-5.6) M/mm3 Hgb (12.5-18.0) gm/dl Hct (42-50) % MCV (78-100) fl MCH (26-32) pg MCHC (32-36) g/dl RDW (11.5-14.0) % Plt Count (150-450) K/mm3 MPV (7.5-11.0) fl Gran % (36.0-66.0) % Eos # (Auto) (0-0.5) Absolute Lymphs (auto) (1.0-4.6) Absolute Monos (auto) (0.0-1.3) Lymphocytes % (24.0-44.0) % Monocytes % (0.0-12.0) % Eosinophils % (0.00-5.0) % Basophils % (0.0-0.4) % Absolute Granulocytes (1.4-6.9) Basophils # (0-0.4) Sodium (137-145) mmol/L Potassium (3.5-5.1) mmol/L Chloride (98-107) mmol/L Carbon Dioxide (22-30) mmol/L Anion Gap (5-15) MEQ/L BUN (9-20) mg/dL Creatinine (0.66-1.25) mg/dL Estimated GFR ML/MIN Glucose (74-106) mg/dL POC Glucometer 44 L* 109 H (74 to 106) mg/dL Hemoglobin A1c 6.28 H (4.5-6.0) % Lactic Acid (0.4-2.0) Calcium (8.4-10.2) mg/dL Total Bilirubin (0.2-1.3) mg/dL AST (17-59) U/L ALT (0-50) U/L Alkaline Phosphatase (38-126) U/L Troponin I (0.000-0.034) ng/mL Serum Total Protein (6.3-8.2) g/dL Albumin (3.5-5.0) g/dL Urine Color (YELLOW) Urine Appearance (CLEAR) Urine pH (5-6) Ur Specific Stephenson (1.005-1.025) Urine Protein (Negative) Urine Ketones (NEGATIVE) Urine Blood (0-5) Sarbjit/ul Urine Nitrite (NEGATIVE) Urine Bilirubin (NEGATIVE) Urine Urobilinogen (0-1) mg/dL Ur Leukocyte Esterase (NEGATIVE) Urine WBC (Auto) (0-5) /HPF Urine RBC (Auto) (0-2) /HPF U Hyaline Cast (Auto) (0-2) /LPF U Epithel Cells (Auto) (FEW) /HPF Urine Bacteria (Auto) (NEGATIVE) /HPF Urine Mucus (Auto) (NEGATIVE) /HPF Urine Culture Reflexed (NO) Urine Glucose (NEGATIVE) mg/dL Influenza Type A Ag (NEGATIVE) Influenza Type B Ag (NEGATIVE) RSV (PCR) (Negative) SARS-CoV-2 (PCR) (NEGATIVE) 10/27/20 10/27/20 10/27/20 Range/Units 11:04 15:38 16:10 WBC (4.0-10.5) K/mm3 RBC (4.1-5.6) M/mm3 Hgb (12.5-18.0) gm/dl Hct (42-50) % MCV (78-100) fl MCH (26-32) pg MCHC (32-36) g/dl RDW (11.5-14.0) % Plt Count (150-450) K/mm3 MPV (7.5-11.0) fl Gran % (36.0-66.0) % Eos # (Auto) (0-0.5) Absolute Lymphs (auto) (1.0-4.6) Absolute Monos (auto) (0.0-1.3) Lymphocytes % (24.0-44.0) % Monocytes % (0.0-12.0) % Eosinophils % (0.00-5.0) % Basophils % (0.0-0.4) % Absolute Granulocytes (1.4-6.9) Basophils # (0-0.4) Sodium (137-145) mmol/L Potassium (3.5-5.1) mmol/L Chloride (98-107) mmol/L Carbon Dioxide (22-30) mmol/L Anion Gap (5-15) MEQ/L BUN (9-20) mg/dL Creatinine (0.66-1.25) mg/dL Estimated GFR ML/MIN Glucose (74-106) mg/dL POC Glucometer 75 54 L 55 L (74 to 106) mg/dL Hemoglobin A1c (4.5-6.0) % Lactic Acid (0.4-2.0) Calcium (8.4-10.2) mg/dL Total Bilirubin (0.2-1.3) mg/dL AST (17-59) U/L ALT (0-50) U/L Alkaline Phosphatase (38-126) U/L Troponin I (0.000-0.034) ng/mL Serum Total Protein (6.3-8.2) g/dL Albumin (3.5-5.0) g/dL Urine Color (YELLOW) Urine Appearance (CLEAR) Urine pH (5-6) Ur Specific Stephenson (1.005-1.025) Urine Protein (Negative) Urine Ketones (NEGATIVE) Urine Blood (0-5) Sarbjit/ul Urine Nitrite (NEGATIVE) Urine Bilirubin (NEGATIVE) Urine Urobilinogen (0-1) mg/dL Ur Leukocyte Esterase (NEGATIVE) Urine WBC (Auto) (0-5) /HPF Urine RBC (Auto) (0-2) /HPF U Hyaline Cast (Auto) (0-2) /LPF U Epithel Cells (Auto) (FEW) /HPF Urine Bacteria (Auto) (NEGATIVE) /HPF Urine Mucus (Auto) (NEGATIVE) /HPF Urine Culture Reflexed (NO) Urine Glucose (NEGATIVE) mg/dL Influenza Type A Ag (NEGATIVE) Influenza Type B Ag (NEGATIVE) RSV (PCR) (Negative) SARS-CoV-2 (PCR) (NEGATIVE) 10/27/20 10/27/20 Range/Units 16:44 19:57 WBC (4.0-10.5) K/mm3 RBC (4.1-5.6) M/mm3 Hgb (12.5-18.0) gm/dl Hct (42-50) % MCV (78-100) fl MCH (26-32) pg MCHC (32-36) g/dl RDW (11.5-14.0) % Plt Count (150-450) K/mm3 MPV (7.5-11.0) fl Gran % (36.0-66.0) % Eos # (Auto) (0-0.5) Absolute Lymphs (auto) (1.0-4.6) Absolute Monos (auto) (0.0-1.3) Lymphocytes % (24.0-44.0) % Monocytes % (0.0-12.0) % Eosinophils % (0.00-5.0) % Basophils % (0.0-0.4) % Absolute Granulocytes (1.4-6.9) Basophils # (0-0.4) Sodium (137-145) mmol/L Potassium (3.5-5.1) mmol/L Chloride (98-107) mmol/L Carbon Dioxide (22-30) mmol/L Anion Gap (5-15) MEQ/L BUN (9-20) mg/dL Creatinine (0.66-1.25) mg/dL Estimated GFR ML/MIN Glucose (74-106) mg/dL POC Glucometer 96 118 H (74 to 106) mg/dL Hemoglobin A1c (4.5-6.0) % Lactic Acid (0.4-2.0) Calcium (8.4-10.2) mg/dL Total Bilirubin (0.2-1.3) mg/dL AST (17-59) U/L ALT (0-50) U/L Alkaline Phosphatase (38-126) U/L Troponin I (0.000-0.034) ng/mL Serum Total Protein (6.3-8.2) g/dL Albumin (3.5-5.0) g/dL Urine Color (YELLOW) Urine Appearance (CLEAR) Urine pH (5-6) Ur Specific Stephenson (1.005-1.025) Urine Protein (Negative) Urine Ketones (NEGATIVE) Urine Blood (0-5) Sarbjit/ul Urine Nitrite (NEGATIVE) Urine Bilirubin (NEGATIVE) Urine Urobilinogen (0-1) mg/dL Ur Leukocyte Esterase (NEGATIVE) Urine WBC (Auto) (0-5) /HPF Urine RBC (Auto) (0-2) /HPF U Hyaline Cast (Auto) (0-2) /LPF U Epithel Cells (Auto) (FEW) /HPF Urine Bacteria (Auto) (NEGATIVE) /HPF Urine Mucus (Auto) (NEGATIVE) /HPF Urine Culture Reflexed (NO) Urine Glucose (NEGATIVE) mg/dL Influenza Type A Ag (NEGATIVE) Influenza Type B Ag (NEGATIVE) RSV (PCR) (Negative) SARS-CoV-2 (PCR) (NEGATIVE) - Radiology Impressions Radiology Exams & Impressions: Radiology Procedures Category Date Time Status ABDOMEN AND PELVIS W/0 CONTRAS [CT] Stat Exams 10/26/20 19:24 Completed CHEST 1 VIEW (PORTABLE) Stat Exams 10/26/20 18:40 Completed US ABDOMEN LIMITED [ABDOMINAL-LIMITED] [US] Stat Exams 10/26/20 22:39 Completed Assessment/Plan (1) Cholelithiasis Current Visit: Yes Status: Acute Qualifiers: Cholelithiasis location: gallbladder Cholecystitis acuity: acute Biliary obstruction: without biliary obstruction Assessment & Plan: Chief Complaint Diagnosis BILARY COLIC, CHOLELITHIASIS, URINARY RETENTION Allergies Allergy/AdvReac Type Severity Reaction Status Date / Time Penicillins Allergy Hives Verified 10/27/20 00:32 Sulfa (Sulfonamide Allergy Hives Verified 10/27/20 00:32 Antibiotics) [Sulfa(Sulfonamide Antibiotics)] Vital Signs (Last 24 hours) Temp Pulse Resp BP Pulse Ox 10/27/20 20:00 96.1 F 75 18 142/65 97 10/27/20 15:42 98.3 F 77 20 140/72 98 10/27/20 12:00 97.3 F 75 15 141/67 97 10/27/20 07:31 98.3 F 85 20 118/61 96 10/27/20 03:34 98.9 F 82 18 128/64 97 10/27/20 00:09 98.1 F 90 178/81 99 10/26/20 23:32 98.1 F 90 20 178/81 99 10/26/20 23:03 98.1 F 90 20 178/81 99 10/26/20 23:00 84 18 161/79 99 10/26/20 21:34 84 18 171/98 96 10/26/20 21:28 100 10/26/20 21:00 77 20 174/84 100 Home Medications Medication Instructions Recorded Confirmed Last Taken Type Amlodipine Besylate [Norvasc] 2.5 mg PO DAILY 10/27/20 10/27/20 Unknown History Carbidopa/Levodopa [Sinemet 25-250 2 each PO TID 10/27/20 10/27/20 10/26/20 History mg Tablet] Glimepiride 4 mg [Amaryl 4 4 mg PO DAILY 10/27/20 10/27/20 Unknown History mg] Insulin Glargine,Hum.rec.anlog 35 unit SQ DAILY 10/27/20 10/27/20 Unknown History [Coby Gandhi] Lisinopril/Hydrochlorothiazide 1 each PO DAILY 10/27/20 10/27/20 Unknown History [Lisinopril-Hctz 20-25 mg Tab] Metformin HCl [Glucophage] 1,000 mg PO BID 10/27/20 10/27/20 Unknown History Peg 400/Hypromellose/Glycerin [Dry 1 drop OP Q4HPRN PRN 10/27/20 10/27/20 Unknown History Eye Relief Eye Drops] Current Medications Generic Name Dose Route Start Last Admin Trade Name Freq PRN Reason Stop Dose Admin Amlodipine Besylate 2.5 mg 10/27/20 10:00 10/27/20 09:41 Norvasc 5 Mg PO 11/26/20 09:59 2.5 mg DAILY JEREMY Administration Artificial Tears 0 ml 10/27/20 09:18 Artificial Tears 15 Ml OP 11/26/20 09:17 Q4HPRN PRN DRY EYES Carbidopa/Levodopa 5 udtab 10/27/20 10:00 10/27/20 15:10 Sinemet 10/100 Mg PO 11/26/20 09:59 5 udtab TID JEREMY Administration Glimepiride 4 mg 10/27/20 10:00 10/27/20 09:23 Amaryl 4 Mg PO 11/26/20 09:59 Not Given BREAKFAST JEREMY Hydrochlorothiazide 25 mg 10/27/20 10:00 10/27/20 09:40 Hydrodiuril 25 Mg PO 11/26/20 09:59 25 mg DAILY JEREMY Administration Hydromorphone HCl 1 mg 10/26/20 21:31 10/27/20 03:14 Hydromorphone 1 Mg/Ml Injection IV 10/31/20 21:30 1 mg Q4H PRN PRN Administration PAIN Sodium Chloride 1,000 mls @ 100 mls/hr 10/26/20 21:45 10/27/20 11:57 Sodium Chloride 0.9% 1000 Ml IV 11/25/20 21:44 100 mls/hr .Q10H JEREMY Administration Levofloxacin/Dextrose 750 mg in 150 mls @ 100 mls/hr 10/27/20 10:00 10/27/20 09:12 Levofloxacin 750mg/150ml D5w IV 11/26/20 09:59 100 mls/hr Q48H JEREMY Administration Insulin Glargine 35 unit 10/27/20 10:00 10/27/20 09:23 Lantus Insulin SQ 11/26/20 09:59 Not Given DAILY JEREMY Lisinopril 20 mg 10/27/20 10:00 10/27/20 09:41 Zestril 20 Mg PO 11/26/20 09:59 20 mg DAILY JEREMY Administration Metformin HCl 1,000 mg 10/27/20 10:00 10/27/20 16:40 Glucophage 500 Mg PO 11/26/20 09:59 Not Given BIDWM JEREMY Ondansetron HCl 4 mg 10/26/20 21:31 10/27/20 03:14 Zofran 4 Mg/2 Ml Vial IV 11/25/20 21:30 4 mg Q6H PRN PRN Administration NAUSEA/VOMITING Polyethylene Glycol/Electrolytes 4,000 ml 10/27/20 18:15 10/27/20 18:09 Golytely Solution 4000 Ml PO 10/27/20 18:16 4,000 ml ONCE@1400 ONE Administration Simvastatin 20 mg 10/27/20 10:00 10/27/20 09:42 Zocor 20mg PO 11/26/20 09:59 20 mg DAILY JEREMY Administration Spironolactone 25 mg 10/27/20 10:00 10/27/20 09:41 Aldactone 25 Mg PO 11/26/20 09:59 25 mg DAILY JEREMY Administration Terazosin HCl 2 mg 10/27/20 22:00 Hytrin 1 Mg PO 11/26/20 21:59 HS JEREMY Discontinued Medications Generic Name Dose Route Start Last Admin Trade Name Tresa PRN Reason Stop Dose Admin Dextrose 25 ml 10/27/20 07:25 10/27/20 07:30 D50w 50 Ml Abboject IV 10/27/20 07:26 25 ml STAT ONE Administration Dextrose 25 ml 10/27/20 16:11 10/27/20 16:13 D50w 50 Ml Abboject IV 10/27/20 16:12 25 ml STAT ONE Administration Glucose 15 gm 10/27/20 06:40 10/27/20 06:44 Glutose 15 Gm Oral Gel PO 10/27/20 06:41 15 gm STAT ONE Administration Glucose 15 gm 10/27/20 15:43 10/27/20 15:45 Glutose 15 Gm Oral Gel PO 10/27/20 15:44 15 gm STAT ONE Administration Hydromorphone HCl 1 mg 10/26/20 19:21 10/26/20 19:26 Hydromorphone 1 Mg/Ml Injection IV 10/26/20 19:22 1 mg STAT ONE Administration Hydromorphone HCl Confirm 10/26/20 19:25 Hydromorphone 1 Mg/Ml Injection Administered 10/26/20 19:26 Dose 1 mg .ROUTE .STK-MED ONE Sodium Chloride 1,000 mls @ 999 mls/hr 10/26/20 18:40 10/26/20 19:47 Sodium Chloride 0.9% 1000 Ml IV 10/26/20 19:40 Infused .Q1H1M STA Infusion Sodium Chloride Confirm 10/26/20 18:41 Sodium Chloride 0.9% 1000 Ml Administered 10/26/20 18:42 Dose 1,000 mls @ ud .ROUTE .STK-MED ONE Sodium Chloride 1,000 mls @ 999 mls/hr 10/26/20 20:31 10/26/20 20:32 Sodium Chloride 0.9% 1000 Ml IV 10/26/20 21:31 999 mls/hr .Q1H1M STA Administration Sodium Chloride Confirm 10/26/20 20:29 Sodium Chloride 0.9% 1000 Ml Administered 10/26/20 20:30 Dose 1,000 mls @ ud .ROUTE .STK-MED ONE Levofloxacin/Dextrose 750 mg in 150 mls @ 100 mls/hr 10/27/20 10:00 Levofloxacin 750mg/150ml D5w IV 11/26/20 09:59 Q24H10 JEREMY Ondansetron HCl 4 mg 10/26/20 18:40 10/26/20 18:46 Zofran 4 Mg/2 Ml Vial IV 10/26/20 18:41 4 mg STAT ONE Administration Ondansetron HCl Confirm 10/26/20 18:41 Zofran 4 Mg/2 Ml Vial Administered 10/26/20 18:42 Dose 4 mg .ROUTE .STK-MED ONE Polyethylene Glycol/Electrolytes Confirm 10/27/20 17:47 Golytely Solution 4000 Ml Administered 10/27/20 17:48 Dose 4,000 ml .ROUTE .STK-MED ONE Intake & Output (Last 24 hours) 10/25/20 10/26/20 10/27/20 10/28/20 11:59 11:59 11:59 11:59 Intake Total 1566 1269 Output Total 2125 1000 Balance -559 269 Weight 100 kg Microbiology Results (Last 24 hours) 10/26/20 21:00 Catherized Urine Culture - Pending Laboratory Results (Last 24 hours) 10/27/20 10/27/20 10/27/20 19:57 16:44 16:10 WBC RBC Hgb Hct MCV MCH MCHC RDW Plt Count MPV Gran % Eos # (Auto) Absolute Lymphs (auto) Absolute Monos (auto) Lymphocytes % Monocytes % Eosinophils % Basophils % Absolute Granulocytes Basophils # Sodium Potassium Chloride Carbon Dioxide Anion Gap BUN Creatinine Estimated GFR Glucose POC Glucometer 118 H 96 55 L Hemoglobin A1c Lactic Acid Calcium Total Bilirubin AST ALT Alkaline Phosphatase Troponin I Serum Total Protein Albumin Urine Color Urine Appearance Urine pH Ur Specific Stephenson Urine Protein Urine Ketones Urine Blood Urine Nitrite Urine Bilirubin Urine Urobilinogen Ur Leukocyte Esterase Urine WBC (Auto) Urine RBC (Auto) U Hyaline Cast (Auto) U Epithel Cells (Auto) Urine Bacteria (Auto) Urine Mucus (Auto) Urine Culture Reflexed Urine Glucose Influenza Type A Ag Influenza Type B Ag RSV (PCR) SARS-CoV-2 (PCR) 10/27/20 10/27/20 10/27/20 15:38 11:04 07:55 WBC RBC Hgb Hct MCV MCH MCHC RDW Plt Count MPV Gran % Eos # (Auto) Absolute Lymphs (auto) Absolute Monos (auto) Lymphocytes % Monocytes % Eosinophils % Basophils % Absolute Granulocytes Basophils # Sodium Potassium Chloride Carbon Dioxide Anion Gap BUN Creatinine Estimated GFR Glucose POC Glucometer 54 L 75 109 H Hemoglobin A1c Lactic Acid Calcium Total Bilirubin AST ALT Alkaline Phosphatase Troponin I Serum Total Protein Albumin Urine Color Urine Appearance Urine pH Ur Specific Stephenson Urine Protein Urine Ketones Urine Blood Urine Nitrite Urine Bilirubin Urine Urobilinogen Ur Leukocyte Esterase Urine WBC (Auto) Urine RBC (Auto) U Hyaline Cast (Auto) U Epithel Cells (Auto) Urine Bacteria (Auto) Urine Mucus (Auto) Urine Culture Reflexed Urine Glucose Influenza Type A Ag Influenza Type B Ag RSV (PCR) SARS-CoV-2 (PCR) 10/27/20 10/27/20 10/27/20 07:23 07:15 06:46 WBC RBC Hgb Hct MCV MCH MCHC RDW Plt Count MPV Gran % Eos # (Auto) Absolute Lymphs (auto) Absolute Monos (auto) Lymphocytes % Monocytes % Eosinophils % Basophils % Absolute Granulocytes Basophils # Sodium Potassium Chloride Carbon Dioxide Anion Gap BUN Creatinine Estimated GFR Glucose POC Glucometer 44 L* Hemoglobin A1c 6.28 H Lactic Acid Calcium Total Bilirubin AST ALT Alkaline Phosphatase Troponin I < 0.012 Serum Total Protein Albumin Urine Color Urine Appearance Urine pH Ur Specific Stephenson Urine Protein Urine Ketones Urine Blood Urine Nitrite Urine Bilirubin Urine Urobilinogen Ur Leukocyte Esterase Urine WBC (Auto) Urine RBC (Auto) U Hyaline Cast (Auto) U Epithel Cells (Auto) Urine Bacteria (Auto) Urine Mucus (Auto) Urine Culture Reflexed Urine Glucose Influenza Type A Ag Influenza Type B Ag RSV (PCR) SARS-CoV-2 (PCR) 10/27/20 10/27/20 10/27/20 06:37 04:45 04:38 WBC RBC Hgb Hct MCV MCH MCHC RDW Plt Count MPV Gran % Eos # (Auto) Absolute Lymphs (auto) Absolute Monos (auto) Lymphocytes % Monocytes % Eosinophils % Basophils % Absolute Granulocytes Basophils # Sodium 139 Potassium 4.0 Chloride 109 H Carbon Dioxide 22 Anion Gap 12.0 BUN 39 H Creatinine 1.70 H Estimated GFR 41.4 Glucose 68 L POC Glucometer 63 L Hemoglobin A1c Lactic Acid 0.9 Calcium 8.9 Total Bilirubin 1.20 AST 34 ALT 13 Alkaline Phosphatase 76 Troponin I Serum Total Protein 6.3 Albumin 3.6 Urine Color Urine Appearance Urine pH Ur Specific Stephenson Urine Protein Urine Ketones Urine Blood Urine Nitrite Urine Bilirubin Urine Urobilinogen Ur Leukocyte Esterase Urine WBC (Auto) Urine RBC (Auto) U Hyaline Cast (Auto) U Epithel Cells (Auto) Urine Bacteria (Auto) Urine Mucus (Auto) Urine Culture Reflexed Urine Glucose Influenza Type A Ag Influenza Type B Ag RSV (PCR) SARS-CoV-2 (PCR) 10/27/20 10/27/20 10/27/20 04:38 04:38 00:45 WBC 7.5 RBC 4.03 L Hgb 12.0 L Hct 36.9 L MCV 91.6 MCH 29.8 MCHC 32.5 RDW 12.9 Plt Count 125 L MPV 12.8 H Gran % 70.6 H Eos # (Auto) 0.05 Absolute Lymphs (auto) 1.56 Absolute Monos (auto) 0.58 Lymphocytes % 20.7 L Monocytes % 7.7 Eosinophils % 0.7 Basophils % 0.3 Absolute Granulocytes 5.32 Basophils # 0.02 Sodium Potassium Chloride Carbon Dioxide Anion Gap BUN Creatinine Estimated GFR Glucose POC Glucometer Hemoglobin A1c Lactic Acid Calcium Total Bilirubin AST ALT Alkaline Phosphatase Troponin I < 0.012 < 0.012 Serum Total Protein Albumin Urine Color Urine Appearance Urine pH Ur Specific Stephen[place] Urine Protein Urine Ketones Urine Blood Urine Nitrite Urine Bilirubin Urine Urobilinogen Ur Leukocyte Esterase Urine WBC (Auto) Urine RBC (Auto) U Hyaline Cast (Auto) U Epithel Cells (Auto) Urine Bacteria (Auto) Urine Mucus (Auto) Urine Culture Reflexed Urine Glucose Influenza Type A Ag Influenza Type B Ag RSV (PCR) SARS-CoV-2 (PCR) 10/26/20 10/26/20 10/26/20 21:50 21:00 20:55 WBC RBC Hgb Hct MCV MCH MCHC RDW Plt Count MPV Gran % Eos # (Auto) Absolute Lymphs (auto) Absolute Monos (auto) Lymphocytes % Monocytes % Eosinophils % Basophils % Absolute Granulocytes Basophils # Sodium Potassium Chloride Carbon Dioxide Anion Gap BUN Creatinine Estimated GFR Glucose POC Glucometer Hemoglobin A1c Lactic Acid 3.3 H Calcium Total Bilirubin AST ALT Alkaline Phosphatase Troponin I < 0.012 Serum Total Protein Albumin Urine Color Urine Appearance Urine pH Ur Specific [place] Urine Protein Urine Ketones Urine Blood Urine Nitrite Urine Bilirubin Urine Urobilinogen Ur Leukocyte Esterase Urine WBC (Auto) Urine RBC (Auto) U Hyaline Cast (Auto) U Epithel Cells (Auto) Urine Bacteria (Auto) Urine Mucus (Auto) Urine Culture Reflexed Urine Glucose Influenza Type A Ag NEGATIVE Influenza Type B Ag NEGATIVE RSV (PCR) NEGATIVE SARS-CoV-2 (PCR) NEGATIVE 10/26/20 10/26/20 20:38 20:00 WBC RBC Hgb Hct MCV MCH MCHC RDW Plt Count MPV Gran % Eos # (Auto) Absolute Lymphs (auto) Absolute Monos (auto) Lymphocytes % Monocytes % Eosinophils % Basophils % Absolute Granulocytes Basophils # Sodium Potassium Chloride Carbon Dioxide Anion Gap BUN Creatinine Estimated GFR Glucose POC Glucometer Hemoglobin A1c Lactic Acid Calcium Total Bilirubin AST ALT Alkaline Phosphatase Troponin I Serum Total Protein Albumin Urine Color YELLOW YELLOW Urine Appearance CLEAR CLEAR Urine pH 5.0 5.0 Ur Specific [place] 1.020 1.020 Urine Protein NEGATIVE NEGATIVE Urine Ketones TRACE TRACE Urine Blood NEGATIVE NEGATIVE Urine Nitrite NEGATIVE NEGATIVE Urine Bilirubin NEGATIVE NEGATIVE Urine Urobilinogen NEGATIVE NEGATIVE Ur Leukocyte Esterase NEGATIVE NEGATIVE Urine WBC (Auto) NONE NONE Urine RBC (Auto) NONE NONE U Hyaline Cast (Auto) 11-25 U Epithel Cells (Auto) NONE NONE Urine Bacteria (Auto) NONE NONE Urine Mucus (Auto) SLIGHT Urine Culture Reflexed ORDERED SEPARATELY NO Urine Glucose NEGATIVE NEGATIVE Influenza Type A Ag Influenza Type B Ag RSV (PCR) SARS-CoV-2 (PCR) Orders (Last 24 hours) Category Date Time Status Admit as Inpatient ROUTINE Care 10/26/20 21:29 Completed Medical Chemist STAT Care 10/26/20 19:[address] ROUTINE Care 10/26/20 21:32 Completed Code Status Order ROUTINE Care 10/26/20 21:29 Active Consent,Obtain ROUTINE Care 10/27/20 17:54 Active Fall Protocol Q1H Care 10/26/20 21:32 Active Way [Catheter-[address]] STAT Care 10/26/20 20:36 Completed IV Care Q6H Care 10/26/20 21:31 Active IV Insertion-2nd Peripheral STAT Care 10/26/20 19:23 Completed Miscellaneous Nursing Order ROUTINE Care 10/27/20 18:04 Active POCT Glucose Check ACHS Care 10/26/20 21:[address] in Observation ROUTINE Care 10/26/20 22:54 Active [facility] ROUTINE Care 10/26/20 21:31 Active Telemetry q6h Care 10/26/20 21:31 Active Consult Surgery ROUTINE Cons 10/26/20 21:31 Completed Infection Control Consult ROUTINE Cons 10/27/20 00:38 Active 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 ROUTINE Cons 10/27/20 00:38 Active Tele-Health Consult ROUTINE Cons 10/27/20 12:49 Completed Clear Liquid Diet 10/27/20 Dinner Active Consistent Carbohydrate Diet 2000 Calorie Diet 10/27/20 Dinner Completed NPO Diet 10/27/20 03:58 Completed NPO Diet 10/28/20 00:01 Active Nutritional Admission Screen ONCE Diet 10/27/20 00:38 Active Discharge Planning,Consult Routine Discharge 10/27/20 Active ABDOMEN AND PELVIS W/0 CONTRAS [CT] Stat Exams 10/26/20 19:24 Completed US ABDOMEN LIMITED [ABDOMINAL-LIMITED] [US] Stat Exams 10/26/20 22:39 Completed CBC W DIFF AM.LAB Lab 10/27/20 04:38 Completed CMP AM.LAB Lab 10/27/20 04:38 Completed CULTURE,URINE Stat Lab 10/26/20 21:00 Received HEMOGLOBIN A1C Urgent Lab 10/27/20 07:15 Completed Lactic Acid AM.LAB Lab 10/27/20 04:45 Completed Lactic Acid Stat Lab 10/26/20 20:55 Completed POCT GLUCOSE Stat Lab 10/27/20 06:37 Completed POCT GLUCOSE Stat Lab 10/27/20 07:23 Completed POCT GLUCOSE Stat Lab 10/27/20 07:55 Completed POCT GLUCOSE Stat Lab 10/27/20 11:04 Completed POCT GLUCOSE Stat Lab 10/27/20 15:38 Completed POCT GLUCOSE Stat Lab 10/27/20 16:10 Completed POCT GLUCOSE Stat Lab 10/27/20 16:44 Completed POCT GLUCOSE Stat Lab 10/27/20 19:57 Completed TROPONIN Q3H Lab 10/26/20 21:00 Completed TROPONIN Q3H Lab 10/27/20 00:45 Completed TROPONIN Q3H Lab 10/27/20 04:38 Completed TROPONIN Q3H Lab 10/27/20 06:46 Completed UA W/RFX UR CULTURE Stat Lab 10/26/20 20:00 Completed UA W/RFX UR CULTURE Stat Lab 10/26/20 20:38 Completed Amlodipine Besylate 5 mg [Norvasc 5 mg] Med 10/27/20 10:00 Active 2.5 mg PO DAILY Carbidopa/Levodopa 10/100 mg [Sinemet 10/100 MG] Med 10/27/20 10:00 Active 5 udtab PO TID Dextrose 15 gm Oral Gel [Glutose 15 GM ORAL GEL] Med 10/27/20 06:40 Discontinued 15 gm PO STAT ONE Dextrose 15 gm Oral Gel [Glutose 15 GM ORAL GEL] Med 10/27/20 15:43 Disc ontinued 15 gm PO STAT ONE Dextrose 50%-Water Syringe [D50W 50 ml Abboject] Med 10/27/20 07:25 Discontinued 25 ml IV STAT ONE Dextrose 50%-Water Syringe [D50W 50 ml Abboject] Med 10/27/20 16:11 Discontinued 25 ml IV STAT ONE Glimepiride 4 mg [Amaryl 4 mg] Med 10/27/20 10:00 Active 4 mg PO BREAKFAST Hydrochlorothiazide 25 mg [hydroDIURIL 25 MG] Med 10/27/20 10:00 Active 25 mg PO DAILY Hydromorphone 1 mg/1Ml Inj [Hydromorphone 1 mg/ml Med 10/26/20 19:25 Discontinued Injection] 1 mg .ROUTE .STK-MED ONE Hydromorphone 1 mg/1Ml Inj [Hydromorphone 1 mg/ml Med 10/26/20 21:31 Active Injection] 1 mg IV Q4H PRN PRN Hydromorphone 1 mg/1Ml Inj [Hydromorphone 1 mg/ml Med 10/26/20 19:21 Discontinued Injection] 1 mg IV STAT ONE Insulin Glargine [Lantus Insulin] Med 10/27/20 10:00 Active 35 unit SQ DAILY Levofloxacin [Levofloxacin 750Mg/150Ml D5w] Med 10/27/20 10:00 Discontinued 750 mg in 150 ml IV Q24H10 Levofloxacin [Levofloxacin 750Mg/150Ml D5w] Med 10/27/20 10:00 Active 750 mg in 150 ml IV Q48H Lisinopril 20 mg [Zestril 20 MG] Med 10/27/20 10:00 Active 20 mg PO DAILY Metformin HCl 500 mg [Glucophage 500 MG] Med 10/27/20 10:00 Active 1,000 mg PO BIDWM NaCl 0.9% 1000 ml [Sodium Chloride 0.9% 1000 ML] 1,000 Med 10/26/20 20:29 Discontinued ml .ROUTE UD NaCl 0.9% 1000 ml [Sodium Chloride 0.9% 1000 ML] 1,000 Med 10/26/20 21:45 Active ml IV 100 mls/hr NaCl 0.9% 1000 ml [Sodium Chloride 0.9% 1000 ML] 1,000 Med 10/26/20 20:31 Discontinued ml IV 999 mls/hr Ondansetron HCl 4 mg/2 ml [Zofran 4 MG/2 ML VIAL] Med 10/26/20 21:31 Active 4 mg IV Q6H PRN PRN Polyvinyl Alcohol Tears [Artificial Tears 15 ML] Med 10/27/20 09:18 Active 0 ml OP Q4HPRN PRN Simvastatin 20Mg [Zocor 20Mg] Med 10/27/20 10:00 Active 20 mg PO DAILY Sod Sulf/Sod/Nahco3/KCl/Peg's* [Golytely Solution 4000 Med 10/27/20 17:47 Discontinued ML] 4,000 ml .ROUTE .STK-MED ONE Sod Sulf/Sod/Nahco3/KCl/Peg's* [Golytely Solution 4000 Med 10/27/20 18:15 Once ML] 4,000 ml PO ONCE@1400 ONE Spironolactone 25 mg [Aldactone 25 MG] Med 10/27/20 10:00 Active 25 mg PO DAILY Terazosin HCl 1 mg [Hytrin 1 mg] Med 10/27/20 22:00 Active 2 mg PO HS Patient Care Notes (Last 24 hours) 10/27/20 18:31 Nursing Note by Maliha Bledsoe spoke with pt's son and granddaughter after pt was seen by Dr. Edilberto Quach. Updated family member on plan to do colonoscopy tomorrow. requested to be contacted with update tomorrow. Initialized on 10/27/20 18:31 - END OF NOTE 10/27/20 12:54 Case Management Note by Janeth Baires USING [email or web address] CASE MANAGEMENT USED THE LIST OF THE TOP RATED COMPANIES THAT SERVICE LIN THEN NARROWED DOWN TO THE ONES THAT ARE OPTIONS FOR PATIENT (BOTH INSURANCE AND SERVICES) AND PRESENTED THESE TO PATIENT. THERE ENDED UP BEING 2 TOP RATED OPTIONS TO CHOOSE FROM WHICH WERE [facility] AND [facility]. PATIENT WAS OFFERED THESE CHOICES OR ANY PROVIDER THAT HE WISHED. HE WOULD LIKE TO GO WITH [facility] REFERRAL SENT AT THIS TIME Initialized on 10/27/20 12:54 - END OF NOTE 10/27/20 08:00 Nursing Note by Maliha Bledsoe Spoke with Kitpeter Malik (pt's son) about dosage of Eliquis and son stated that he was unsure so he woke up his daughter to ask her and she stated she also did not believe that the pt was on Eliquis, Kit also went to the pt's apartment and checked his med list and stated that neither the commercial or generic name was listed on the pt's medication list. Initialized on 10/27/20 08:00 - END OF NOTE 10/27/20 07:45 (created 10/27/20 13:55) Case Management Note by Malathi Arauz SPOKE WITH DR. DUGGAN REGARDING STATUS OF PT, INPT VS OBSERVATION. DR. DUGGAN REPORTS THAT PT SHOULD BE IN OBSERVATION STATUS FROM THE BEGINNING. DR. DUGGAN FEELS THAT PT CAN BE MANAGED IN OBSERVATION SETTING. ORDERS TO CHANGE PT TO OBSERVATION STATUS. Initialized on 10/27/20 13:55 - END OF NOTE (2) Biliary colic symptom Current Visit: Yes Status: Acute Code(s): K80.50 - CALCULUS OF BILE DUCT W/O CHOLANGITIS OR CHOLECYST W/O OBST (3) Urinary retention Current Visit: Yes Status: Acute Code(s): R33.9 - RETENTION OF URINE, UNSPECIFIED (4) Diabetes mellitus type II, uncontrolled Current Visit: Yes Status: Chronic Code(s): E11.65 - TYPE 2 DIABETES MELLITUS WITH HYPERGLYCEMIA (5) CHF (congestive heart failure), NYHA class III Current Visit: No Status: Chronic Code(s): I50.9 - HEART FAILURE, UNSPECIFIED
[2020-10-27] MEDS: HYTRIN 1 MG PO SCH (22:05)
[2020-10-28] MEDS: Glucophage 500 MG PO SCH ×2 (08:34→17:17)
[2020-10-28] MEDS: AMARYL 4 MG PO SCH (08:34)
[2020-10-28] MEDS: Sodium Chloride 0.9% 1000 ML 1,000 ML IV SCH ×2 (09:41→20:27)
[2020-10-28] MEDS ORDERED: Lactated Ringers 1,000 ML IV ONE (10:15)
[2020-10-28] MEDS ORDERED: Sensorcaine 0.25% 10 ML ONE (10:15)
[2020-10-28] MEDS: Aldactone 25 MG PO SCH (10:49)
[2020-10-28] MEDS: Lantus Insulin SQ SCH (10:50)
[2020-10-28] MEDS: Sinemet 10/100 MG PO SCH ×3 (10:50→21:12)
[2020-10-28] MEDS: hydroDIURIL 25 MG PO SCH (10:50)
[2020-10-28] MEDS: ZOCOR 20MG PO SCH (10:50)
[2020-10-28] MEDS: NORVASC 5 MG PO SCH (10:50)
[2020-10-28] MEDS: Zestril 20 MG PO SCH (10:50)
[2020-10-28] MEDS ORDERED: Lactated Ringers 1,000 ML IV SCH (11:30)
--- NOTE | 2020-10-28 11:32 | PCM.NOTE ---
Date and Time: 10/28/20 1132 Subjective Assessment: doing better - Review of Systems Constitutional: No Fever, No Chills Eyes: No Symptoms Ears, Nose, & Throat: No Symptoms Respiratory: No Cough, No Short Of Breath Cardiac: No Chest Pain, No Edema, No Syncope Abdominal/Gastrointestinal: No Abdominal Pain, No Nausea, No Vomiting, No Diarrhea Genitourinary Symptoms: No Dysuria Musculoskeletal: No Back Pain, No Neck Pain Skin: No Rash Neurological: No Dizziness, No Focal Weakness, No Sensory Changes Psychological: No Symptoms Endocrine: No Symptoms Hematologic/Lymphatic: No Symptoms Immunological/Allergic: No Symptoms OBJECTIVE DATA Vital Signs: Vital Signs - 24 hr Temp Pulse Resp BP Pulse Ox 10/28/20 07:50 98.3 F 87 20 190/83 98 10/28/20 04:00 97.9 F 86 20 147/70 98 10/28/20 00:00 99.0 F 84 18 123/65 94 L 10/27/20 20:00 96.1 F 75 18 142/65 97 10/27/20 15:42 98.3 F 77 20 140/72 98 10/27/20 12:00 97.3 F 75 15 141/67 97 Pain Assessment - Last Documented Pain Intensity 0 Pain Scale Used 0-10 Pain Scale Intake and Output: Intake & Output 10/25/20 10/26/20 10/27/20 10/28/20 11:59 11:59 11:59 11:59 Intake Total 1566 5573 Output Total 2125 2450 Balance -559 3123 Weight 100 kg Lab Results: Lab Results-Last 24 Hours 10/27/20 10/27/20 10/27/20 Range/Units 15:38 16:10 16:44 POC Glucometer 54 L 55 L 96 (74 to 106) mg/dL 10/27/20 10/28/20 10/28/20 Range/Units 19:57 00:07 03:47 POC Glucometer 118 H 106 95 (74 to 106) mg/dL 10/28/20 10/28/20 Range/Units 06:54 11:16 POC Glucometer 90 96 (74 to 106) mg/dL Radiology Exams: Radiology Procedures Category Date Time Status ABDOMEN AND PELVIS W/0 CONTRAS [CT] Stat Exams 10/26/20 19:24 Completed CHEST 1 VIEW (PORTABLE) Stat Exams 10/26/20 18:40 Completed US ABDOMEN LIMITED [ABDOMINAL-LIMITED] [US] Stat Exams 10/26/20 22:39 Completed Multi-Disciplinary Progress Notes: Multi-Disciplinary Progress Notes 10/28/20 11:07 Case Management Note by Janeth Baires [facility] HAS ACCEPTED PATIENT THRU THEIR [facility] OFFICE. THEY WILL NEED NOTIFIED OF DC AT [phone]. THEY WILL NEED FAXED THE DC INSTRUCTIONS, DC MED LIST AND DC SUMMARY(IF AVAILABLE) TO [phone] Initialized on 10/28/20 11:07 - END OF NOTE 10/27/20 12:54 Case Management Note by Janeth Baires USING [email or web address] CASE MANAGEMENT USED THE LIST OF THE TOP RATED COMPANIES THAT SERVICE LIN THEN NARROWED DOWN TO THE ONES THAT ARE OPTIONS FOR PATIENT (BOTH INSURANCE AND SERVICES) AND PRESENTED THESE TO PATIENT. THERE ENDED UP BEING 2 TOP RATED OPTIONS TO CHOOSE FROM WHICH WERE [facility] AND [facility]. PATIENT WAS OFFERED THESE CHOICES OR ANY PROVIDER THAT HE WISHED. HE WOULD LIKE TO GO WITH [facility] REFERRAL SENT AT THIS TIME Initialized on 10/27/20 12:54 - END OF NOTE Assessment/Plan (1) Cholelithiasis Current Visit: Yes Status: Acute Qualifiers: Cholelithiasis location: gallbladder Cholecystitis acuity: acute Biliary obstruction: without biliary obstruction Assessment & Plan: Chief Complaint Diagnosis abdominal pain for 2 days Allergies Allergy/AdvReac Type Severity Reaction Status Date / Time Penicillins Allergy Hives Verified 10/27/20 00:32 Sulfa (Sulfonamide Allergy Hives Verified 10/27/20 00:32 Antibiotics) [Sulfa(Sulfonamide Antibiotics)] Vital Signs (Last 24 hours) Temp Pulse Resp BP Pulse Ox 10/28/20 07:50 98.3 F 87 20 190/83 98 10/28/20 04:00 97.9 F 86 20 147/70 98 10/28/20 00:00 99.0 F 84 18 123/65 94 L 10/27/20 20:00 96.1 F 75 18 142/65 97 10/27/20 15:42 98.3 F 77 20 140/72 98 10/27/20 12:00 97.3 F 75 15 141/67 97 Home Medications Medication Instructions Recorded Confirmed Last Taken Type Amlodipine Besylate [Norvasc] 2.5 mg PO DAILY 10/27/20 10/27/20 Unknown History Carbidopa/Levodopa [Sinemet 25-250 2 each PO TID 10/27/20 10/27/20 10/26/20 History mg Tablet] Glimepiride 4 mg [Amaryl 4 4 mg PO DAILY 10/27/20 10/27/20 Unknown History mg] Insulin Glargine,Hum.rec.anlog 35 unit SQ DAILY 10/27/20 10/27/20 Unknown History [Coby Gandhi] Lisinopril/Hydrochlorothiazide 1 each PO DAILY 10/27/20 10/27/20 Unknown History [Lisinopril-Hctz 20-25 mg Tab] Metformin HCl [Glucophage] 1,000 mg PO BID 10/27/20 10/27/20 Unknown History Peg 400/Hypromellose/Glycerin [Dry 1 drop OP Q4HPRN PRN 10/27/20 10/27/20 Unknown History Eye Relief Eye Drops] Current Medications Generic Name Dose Route Start Last Admin Trade Name Freq PRN Reason Stop Dose Admin Amlodipine Besylate 2.5 mg 10/27/20 10:00 10/28/20 10:50 Norvasc 5 Mg PO 11/26/20 09:59 Not Given DAILY JEREMY Artificial Tears 0 ml 10/27/20 09:18 Artificial Tears 15 Ml OP 11/26/20 09:17 Q4HPRN PRN DRY EYES Carbidopa/Levodopa 5 udtab 10/27/20 10:00 10/28/20 10:50 Sinemet 10/100 Mg PO 11/26/20 09:59 Not Given TID JEREMY Glimepiride 4 mg 10/27/20 10:00 10/28/20 08:34 Amaryl 4 Mg PO 11/26/20 09:59 4 mg BREAKFAST JEREMY Administration Hydrochlorothiazide 25 mg 10/27/20 10:00 10/28/20 10:50 Hydrodiuril 25 Mg PO 11/26/20 09:59 Not Given DAILY JEREMY Hydromorphone HCl 1 mg 10/26/20 21:31 10/27/20 03:14 Hydromorphone 1 Mg/Ml Injection IV 10/31/20 21:30 1 mg Q4H PRN PRN Administration PAIN Sodium Chloride 1,000 mls @ 100 mls/hr 10/26/20 21:45 10/28/20 09:41 Sodium Chloride 0.9% 1000 Ml IV 11/25/20 21:44 100 mls/hr .Q10H JEREMY Administration Levofloxacin/Dextrose 750 mg in 150 mls @ 100 mls/hr 10/27/20 10:00 10/27/20 09:12 Levofloxacin 750mg/150ml D5w IV 11/26/20 09:59 100 mls/hr Q48H JEREMY Administration Lactated Ringer's 1,000 mls @ 50 mls/hr 10/28/20 11:30 Lactated Ringers IV 11/27/20 11:29 .Q20H JEREMY Insulin Glargine 35 unit 10/27/20 10:00 10/28/20 10:50 Lantus Insulin SQ 11/26/20 09:59 Not Given DAILY JEREMY Lisinopril 20 mg 10/27/20 10:00 10/28/20 10:50 Zestril 20 Mg PO 11/26/20 09:59 Not Given DAILY JEREMY Metformin HCl 1,000 mg 10/27/20 10:00 10/28/20 08:34 Glucophage 500 Mg PO 11/26/20 09:59 Not Given BIDWM JEREMY Ondansetron HCl 4 mg 10/26/20 21:31 10/27/20 03:14 Zofran 4 Mg/2 Ml Vial IV 11/25/20 21:30 4 mg Q6H PRN PRN Administration NAUSEA/VOMITING Simvastatin 20 mg 10/27/20 10:00 10/28/20 10:50 Zocor 20mg PO 11/26/20 09:59 Not Given DAILY JEREMY Spironolactone 25 mg 10/27/20 10:00 10/28/20 10:49 Aldactone 25 Mg PO 11/26/20 09:59 Not Given DAILY JEREMY Terazosin HCl 2 mg 10/27/20 22:00 10/27/20 22:05 Hytrin 1 Mg PO 11/26/20 21:59 2 mg HS JEREMY Administration Discontinued Medications Generic Name Dose Route Start Last Admin Trade Name Freq PRN Reason Stop Dose Admin Bupivacaine HCl Confirm 10/28/20 10:15 Sensorcaine 0.25% 10 Ml Administered 10/28/20 10:16 Dose 10 ml .ROUTE .STK-MED ONE Dextrose 25 ml 10/27/20 07:25 10/27/20 07:30 D50w 50 Ml Abboject IV 10/27/20 07:26 25 ml STAT ONE Administration Dextrose 25 ml 10/27/20 16:11 10/27/20 16:13 D50w 50 Ml Abboject IV 10/27/20 16:12 25 ml STAT ONE Administration Glucose 15 gm 10/27/20 06:40 10/27/20 06:44 Glutose 15 Gm Oral Gel PO 10/27/20 06:41 15 gm STAT ONE Administration Glucose 15 gm 10/27/20 15:43 10/27/20 15:45 Glutose 15 Gm Oral Gel PO 10/27/20 15:44 15 gm STAT ONE Administration Hydromorphone HCl 1 mg 10/26/20 19:21 10/26/20 19:26 Hydromorphone 1 Mg/Ml Injection IV 10/26/20 19:22 1 mg STAT ONE Administration Hydromorphone HCl Confirm 10/26/20 19:25 Hydromorphone 1 Mg/Ml Injection Administered 10/26/20 19:26 Dose 1 mg .ROUTE .STK-MED ONE Sodium Chloride 1,000 mls @ 999 mls/hr 10/26/20 18:40 10/26/20 19:47 Sodium Chloride 0.9% 1000 Ml IV 10/26/20 19:40 Infused .Q1H1M STA Infusion Sodium Chloride Confirm 10/26/20 18:41 Sodium Chloride 0.9% 1000 Ml Administered 10/26/20 18:42 Dose 1,000 mls @ ud .ROUTE .STK-MED ONE Sodium Chloride 1,000 mls @ 999 mls/hr 10/26/20 20:31 10/26/20 20:32 Sodium Chloride 0.9% 1000 Ml IV 10/26/20 21:31 999 mls/hr .Q1H1M STA Administration Sodium Chloride Confirm 10/26/20 20:29 Sodium Chloride 0.9% 1000 Ml Administered 10/26/20 20:30 Dose 1,000 mls @ ud .ROUTE .STK-MED ONE Levofloxacin/Dextrose 750 mg in 150 mls @ 100 mls/hr 10/27/20 10:00 Levofloxacin 750mg/150ml D5w IV 11/26/20 09:59 Q24H10 JEREMY Lactated Ringer's Confirm 10/28/20 10:15 Lactated Ringers Administered 10/28/20 10:16 Dose 1,000 mls @ ud IV .STK-MED ONE Ondansetron HCl 4 mg 10/26/20 18:40 10/26/20 18:46 Zofran 4 Mg/2 Ml Vial IV 10/26/20 18:41 4 mg STAT ONE Administration Ondansetron HCl Confirm 10/26/20 18:41 Zofran 4 Mg/2 Ml Vial Administered 10/26/20 18:42 Dose 4 mg .ROUTE .STK-MED ONE Polyethylene Glycol/Electrolytes Confirm 10/27/20 17:47 Golytely Solution 4000 Ml Administered 10/27/20 17:48 Dose 4,000 ml .ROUTE .STK-MED ONE Polyethylene Glycol/Electrolytes 4,000 ml 10/27/20 18:15 10/27/20 18:09 Golytely Solution 4000 Ml PO 10/27/20 18:16 4,000 ml ONCE@1400 ONE Administration Intake & Output (Last 24 hours) 10/25/20 10/26/20 10/27/20 10/28/20 11:59 11:59 11:59 11:59 Intake Total 1566 5573 Output Total 2125 2450 Balance -559 3123 Weight 100 kg Laboratory Results (Last 24 hours) 10/28/20 10/28/20 10/28/20 11:16 06:54 03:47 POC Glucometer 96 90 95 10/28/20 10/27/20 10/27/20 00:07 19:57 16:44 POC Glucometer 106 118 H 96 10/27/20 10/27/20 16:10 15:38 POC Glucometer 55 L 54 L Orders (Last 24 hours) Category Date Time Status Consent,Obtain ROUTINE Care 10/27/20 17:54 Active Enema STAT Care 10/28/20 10:49 Active Miscellaneous Nursing Order ROUTINE Care 10/27/20 18:04 Active Tele-Health Consult ROUTINE Cons 10/27/20 12:49 Completed Clear Liquid Diet 10/27/20 Dinner Completed Consistent Carbohydrate Diet 2000 Calorie Diet 10/27/20 Dinner Completed NPO Diet 10/28/20 00:01 Active POCT GLUCOSE Stat Lab 10/27/20 11:04 Completed POCT GLUCOSE Stat Lab 10/27/20 15:38 Completed POCT GLUCOSE Stat Lab 10/27/20 16:10 Completed POCT GLUCOSE Stat Lab 10/27/20 16:44 Completed POCT GLUCOSE Stat Lab 10/27/20 19:57 Completed POCT GLUCOSE Stat Lab 10/28/20 00:07 Completed POCT GLUCOSE Stat Lab 10/28/20 03:47 Completed POCT GLUCOSE Stat Lab 10/28/20 06:54 Completed POCT GLUCOSE Stat Lab 10/28/20 11:16 Completed Bupivacaine HCl 0.25% 10 ml [Sensorcaine 0.25% 10 ML Med 10/28/20 10:15 Discontinued ] 10 ml .ROUTE .STK-MED ONE Dextrose 15 gm Oral Gel [Glutose 15 GM ORAL GEL] Med 10/27/20 15:43 Discontinued 15 gm PO STAT ONE Dextrose 50%-Water Syringe [D50W 50 ml Abboject] Med 10/27/20 16:11 Discontinued 25 ml IV STAT ONE Ringers Solution,Lactated [Lactated Ringers] 1,000 ml Med 10/28/20 11:30 Active IV 50 mls/hr Ringers Solution,Lactated [Lactated Ringers] 1,000 ml Med 10/28/20 10:15 Discontinued IV UD Sod Sulf/Sod/Nahco3/KCl/Peg's* [Golytely Solution 4000 Med 10/27/20 17:47 Discontinued ML] 4,000 ml .ROUTE .STK-MED ONE Sod Sulf/Sod/Nahco3/KCl/Peg's* [Golytely Solution 4000 Med 10/27/20 18:15 Discontinued ML] 4,000 ml PO ONCE@1400 ONE Terazosin HCl 1 mg [Hytrin 1 mg] Med 10/27/20 22:00 Active 2 mg PO HS Patient Care Notes (Last 24 hours) 10/28/20 11:07 Case Management Note by Janeth Baires [facility] HAS ACCEPTED PATIENT THRU THEIR [facility] OFFICE. THEY WILL NEED NOTIFIED OF DC AT [phone]. THEY WILL NEED FAXED THE DC INSTRUCTIONS, DC MED LIST AND DC SUMMARY(IF AVAILABLE) TO [phone] Initialized on 10/28/20 11:07 - END OF NOTE 10/28/20 02:21 Nursing Note by Jonna Khanna PT DRANK 3200 OF THE GO-LYTLY PREP FOR COLONOSCOPY. TOLERATED WELL. Initialized on 10/28/20 02:21 - END OF NOTE 10/27/20 18:31 Nursing Note by Maliha Bledsoe spoke with pt's son and granddaughter after pt was seen by Dr. Edilberto Quach. Updated family member on plan to do colonoscopy tomorrow. requested to be contacted with update tomorrow. Initialized on 10/27/20 18:31 - END OF NOTE 10/27/20 12:54 Case Management Note by Janeth Baires USING [email or web address] CASE MANAGEMENT USED THE LIST OF THE TOP RATED COMPANIES THAT SERVICE LIN THEN NARROWED DOWN TO THE ONES THAT ARE OPTIONS FOR PATIENT (BOTH INSURANCE AND SERVICES) AND PRESENTED THESE TO PATIENT. THERE ENDED UP BEING 2 TOP RATED OPTIONS TO CHOOSE FROM WHICH WERE [facility] AND [facility]. PATIENT WAS OFFERED THESE CHOICES OR ANY PROVIDER THAT HE WISHED. HE WOULD LIKE TO GO WITH [facility] REFERRAL SENT AT THIS TIME Initialized on 10/27/20 12:54 - END OF NOTE (2) Biliary colic symptom Current Visit: Yes Status: Acute Code(s): K80.50 - CALCULUS OF BILE DUCT W/O CHOLANGITIS OR CHOLECYST W/O OBST (3) Urinary retention Current Visit: Yes Status: Acute Code(s): R33.9 - RETENTION OF URINE, UNSPECIFIED (4) Diabetes mellitus type II, uncontrolled Current Visit: Yes Status: Chronic Code(s): E11.65 - TYPE 2 DIABETES MELLITUS WITH HYPERGLYCEMIA (5) CHF (congestive heart failure), NYHA class III Current Visit: No Status: Chronic Code(s): I50.9 - HEART FAILURE, UNSPECIFIED
[2020-10-28] MEDS ORDERED: Levofloxacin 500MG/100ML D5W 500 MG/100 ML BAG IV SCH (12:30)
[2020-10-28] MEDS ORDERED: CLINDAMYCIN-D5W 900 MG/50 ML*** 900 MG/50 ML BAG IV SCH (12:30)
[2020-10-28] MEDS ORDERED: Glutose 15 GM ORAL GEL PO PRN (14:15)
[2020-10-28] MEDS ORDERED: D50W 50 ml Abboject IV PRN (14:15)
[2020-10-28] MEDS ORDERED: GlucaGen 1 MG IM PRN (14:15)
[2020-10-28] MEDS ORDERED: Zofran 4 MG/2 ML VIAL ONE (15:24)
[2020-10-28] MEDS ORDERED: BRIDION 200MG/2ML IV ONE (15:24)
[2020-10-28] MEDS ORDERED: SUBLIMAZE 100 MCG/2 ML ONE (15:24)
[2020-10-28] MEDS ORDERED: Decadron 4 MG INJ ONE (15:24)
[2020-10-28] MEDS ORDERED: Zemuron 100 MG/10 ML ONE (15:24)
[2020-10-28] MEDS ORDERED: DIPRIVAN 200 MG/20 ML IV ONE (15:24)
[2020-10-28] MEDS ORDERED: Xylocaine-Mpf 2% 5 Ml Vial ONE (15:24)
[2020-10-28] MEDS ORDERED: BREVIBLOC 100 MG/10 ML IV ONE (18:06)
[2020-10-28] MEDS ORDERED: Ephedrine Sulfate 50 MG/ML ONE (18:32)
[2020-10-28] MEDS ORDERED: PHENYLEPHRINE HCL ONE (18:32)
[2020-10-28] MEDS ORDERED: MORPHINE SULFATE 10 MG/ML ONE (19:31)
[2020-10-28] MEDS: HYTRIN 1 MG PO SCH (21:12)
[2020-10-28] MEDS ORDERED: Sodium Chloride 0.9% 1000 ML 1,000 ML IV SCH (21:15)
[2020-10-28] MEDS: MORPHINE SULFATE 2 MG INJ IV PRN (23:49)
[2020-10-29] MEDS: MORPHINE SULFATE 2 MG INJ IV PRN ×2 (03:58→07:35)
[2020-10-29] MEDS: AMARYL 4 MG PO SCH ×2 (07:33→08:24)
--- NOTE | 2020-10-29 08:04 | CONS ---
CONSULT DATE: 10/27/2020 REASON FOR CONSULT: Abdominal pain. HISTORY: The patient has left lower quadrant pain, some upper abdominal pain. He had CT scan showing chronic diverticulitis, some obstipation. He does have stones. He was seen and examined at the bedside. His stones are not overly symptomatic but I think they are intermittently symptomatic. He also has left lower quadrant pain. He is alert and orientated and conversive. We conversed for about 20 minutes. My dad and his dad were good friends and actually working buddies. This gentleman has multiple car stories. He loves cars especially [employer]. Kahlil discussion concerning possible cholecystectomy and colonoscopy. We will schedule this for tomorrow. We would like to get this done while he is here. IMPRESSION: 1) Symptomatic cholelithiasis. 2) No recent colonoscopic examination with some left lower quadrant pain and change in bowel habits. PLAN: 1) Laparoscopic cholecystectomy. 2) Colonoscopy if possible. He was given a prep today.
[2020-10-29] MEDS: Glucophage 500 MG PO SCH (08:24)
[2020-10-29] MEDS: Sinemet 10/100 MG PO SCH ×2 (09:09→15:07)
[2020-10-29] MEDS: LEVOFLOXACIN 750MG/150ML D5W 750 MG/150 ML BAG IV SCH (09:10)
[2020-10-29] MEDS: NORVASC 5 MG PO SCH (09:10)
[2020-10-29] MEDS: Aldactone 25 MG PO SCH (09:10)
[2020-10-29] MEDS: hydroDIURIL 25 MG PO SCH (09:10)
[2020-10-29] MEDS: ZOCOR 20MG PO SCH (09:10)
[2020-10-29] MEDS: Zestril 20 MG PO SCH (09:10)
--- NOTE | 2020-10-29 10:19 | OP ---
SURGERY DATE/TIME: 10/28/2020 1806 PREOPERATIVE DIAGNOSES: 1) Symptomatic cholelithiasis. 2) Left lower quadrant pain. POSTOPERATIVE DIAGNOSES: PROCEDURES: 1) Laparoscopic cholecystectomy. 2) Colonoscopy complete to cecum with hot polypectomy 1 cm lesion of left colon. SURGEON: Dr. Augustus Quach. ANESTHESIA: General by Kanu Nolan CRNA. ESTIMATED BLOOD LOSS: None. DRAINS: None. COMPLICATIONS: None. INDICATIONS: A patient with symptomatic cholelithiasis. He also had some left lower quadrant pain and some change in bowel habits. He has never had a colonoscopy. He had a bowel prep. He desired to have both this and the cholecystectomy. DESCRIPTION OF PROCEDURE AND FINDINGS: Taken to surgery. General anesthetic. Routine prep and drape. Veress needle inserted. Opening pressure of 1, insufflating pressure 14. Four - 5's. Good visualization. 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 The gallbladder was visible. It had adhesions to the omentum, adhesions to the duodenum. These were taken down deliberately. Cystic duct defined. It was slightly broad. It was taken with [employer]ovascular ku staple cartridge. Cystic artery triply clipped. Gallbladder rolled out of gallbladder fossa. Hemostasis satisfactory. The gallbladder delivered through the upper abdominal 12 port site. Epigastric midline 5 had been changed to a 12. Hole closure device was used here. Field was dry. CO2 was exsufflated. Skin closed with elsa and Steri-Strips. The patient was rotated. Anal digital examination satisfactory. Scope introduced. Scope advanced to the cecum. Ileocecal valve and appendiceal orifice normal. Ascending, hepatic, transverse, splenic, descending, a 1 cm polyp was present at 50 cm taken with hot biopsy forceps to extinction. Rectum. Anus moderate internal hemorrhoids. The patient tolerated the procedure satisfactorily.
[2020-10-29] MEDS: Lantus Insulin SQ SCH (11:56)
[2020-10-29 12:02] VITALS: BP 137/70; PULSE 72; O2SAT 96
[2020-10-29] MEDS ORDERED: NORCO 5/325 MG PO PRN (12:22)
--- NOTE | 2020-10-29 22:33 | PCM.DS ---
Discharge Summary Date of Admission: 10/26/20 22:54 Admitting Physician: MYRTLE DUGGAN Consults: Consults on Case 10/26/20 21:31 Consult Surgery ROUTINE 10/27/20 12:49 Tele-Health Consult ROUTINE Primary Care Provider: MYRTLE DUGGAN Allergies Allergies Penicillins Allergy (Verified 10/27/20 00:32) Hives Sulfa (Sulfonamide Antibiotics) [Sulfa(Sulfonamide Antibiotics)] Allergy (Verifi ed 10/27/20 00:32) Hives Hospital Summary - Hospital Course Hospital Course: Last Vital Signs Temp 98.1 F 10/29/20 12:00 Pulse 72 10/29/20 12:00 Resp 16 10/29/20 12:00 BP 137/70 10/29/20 12:00 Pulse Ox 96 10/29/20 12:00 Allergies Penicillins Allergy (Verified 10/27/20 00:32) Hives Sulfa (Sulfonamide Antibiotics) [Sulfa(Sulfonamide Antibiotics)] Allergy (Verified 10/27/20 00:32) Hives Intake & Output 10/29/20 10/30/20 11:59 11:59 Intake Total 1969 240 Output Total 1525 450 Balance 444 -210 Orders 10/29/20 Discharge Routine Lab Tests 10/28/20 10/29/20 10/29/20 23:10 06:53 11:12 POC Glucometer 180 H 240 H 198 H Chief Complaint Diagnosis abdominal pain for 2 days Allergies Allergy/AdvReac Type Severity Reaction Status Date / Time Penicillins Allergy Hives Verified 10/27/20 00:32 Sulfa (Sulfonamide Allergy Hives Verified 10/27/20 00:32 Antibiotics) [Sulfa(Sulfonamide Antibiotics)] Vital Signs (Last 24 hours) Temp Pulse Resp BP Pulse Ox 10/29/20 12:00 98.1 F 72 16 137/70 96 10/29/20 08:00 97.8 F 82 18 137/69 94 L 10/29/20 07:14 93 L 10/29/20 06:55 97 10/29/20 03:48 97.3 F 84 18 135/65 94 L 10/29/20 00:12 87 127/77 10/28/20 23:57 97.6 F 88 18 127/77 95 10/28/20 22:40 86 134/68 Home Medications Medication Instructions Recorded Confirmed Last Taken Type Amlodipine Besylate [Norvasc] 2.5 mg PO DAILY 10/27/20 10/27/20 Unknown History Carbidopa/Levodopa [Sinemet 25-250 2 each PO TID 10/27/20 10/27/20 10/26/20 History mg Tablet] Glimepiride 4 mg [Amaryl 4 4 mg PO DAILY 10/27/20 10/27/20 Unknown History mg] Insulin Glargine,Hum.rec.anlog 35 unit SQ DAILY 10/27/20 10/27/20 Unknown History [[place] Max Solostar] Lisinopril/Hydrochlorothiazide 1 each PO DAILY 10/27/20 10/27/20 Unknown History [Lisinopril-Hctz 20-25 mg Tab] Metformin HCl [Glucophage] 1,000 mg PO BID 10/27/20 10/27/20 Unknown History Peg 400/Hypromellose/Glycerin [Dry 1 drop OP Q4HPRN PRN 10/27/20 10/27/20 Unknown History Eye Relief Eye Drops] Hydrocodone Bit/Acetaminophen 1 each PO Q4HPRN PRN #20 tablet 10/29/20 Unknown Rx [Hydrocodon-Acetaminophen 5-325] Current Medications Discontinued Medications Generic Name Dose Route Start Last Admin Trade Name Freq PRN Reason Stop Dose Admin Hydrocodone Bitart/Acetaminophen 1 tab 10/29/20 12:22 10/29/20 12:30 [place] 5/325 Mg PO 11/03/20 12:21 1 tab Q4H PRN PRN Administration PAIN Amlodipine Besylate 2.5 mg 10/27/20 10:00 10/29/20 09:10 Norvasc 5 Mg PO 11/26/20 09:59 2.5 mg DAILY JEREMY Administration Artificial Tears 0 ml 10/27/20 09:18 Artificial Tears 15 Ml OP 11/26/20 09:17 Q4HPRN PRN DRY EYES Bupivacaine HCl Confirm 10/28/20 10:15 Sensorcaine 0.25% 10 Ml Administered 10/28/20 10:16 Dose 10 ml .ROUTE .STK-MED ONE Carbidopa/Levodopa 5 udtab 10/27/20 10:00 10/29/20 15:07 Sinemet 10/100 Mg PO 11/26/20 09:59 5 udtab TID JEREMY Administration Dexamethasone Sodium Phosphate Confirm 10/28/20 15:24 Decadron 4 Mg Inj Administered 10/28/20 15:25 Dose 4 mg .ROUTE .STK-MED ONE Dextrose 25 ml 10/27/20 07:25 10/27/20 07:30 D50w 50 Ml Abboject IV 10/27/20 07:26 25 ml STAT ONE Administration Dextrose 25 ml 10/27/20 16:11 10/27/20 16:13 D50w 50 Ml Abboject IV 10/27/20 16:12 25 ml STAT ONE Administration Dextrose 25 ml 10/28/20 14:15 D50w 50 Ml Abboject IV 11/27/20 14:14 UD PRN Ephedrine Sulfate Confirm 10/28/20 18:32 Ephedrine Sulfate 50 Mg/Ml Administered 10/28/20 18:33 Dose 50 mg .ROUTE .STK-MED ONE Esmolol HCl Confirm 10/28/20 18:06 Brevibloc 100 Mg/10 Ml Administered 10/28/20 18:07 Dose 100 mg IV .STK-MED ONE Fentanyl Citrate Confirm 10/28/20 15:24 Sublimaze 100 Mcg/2 Ml Administered 10/28/20 15:25 Dose 100 mcg .ROUTE .STK-MED ONE Glimepiride 4 mg 10/27/20 10:00 10/29/20 08:24 Amaryl 4 Mg PO 11/26/20 09:59 4 mg BREAKFAST JEREMY Administration Glucagon 1 mg 10/28/20 14:15 Glucagen 1 Mg IM 11/27/20 14:14 UD PRN Glucose 15 gm 10/27/20 06:40 10/27/20 06:44 Glutose 15 Gm Oral Gel PO 10/27/20 06:41 15 gm STAT ONE Administration Glucose 15 gm 10/27/20 15:43 10/27/20 15:45 Glutose 15 Gm Oral Gel PO 10/27/20 15:44 15 gm STAT ONE Administration Glucose 15 gm 10/28/20 14:15 10/28/20 22:29 Glutose 15 Gm Oral Gel PO 11/27/20 14:14 15 gm UD PRN Administration Hydrochlorothiazide 25 mg 10/27/20 10:00 10/29/20 09:10 Hydrodiuril 25 Mg PO 11/26/20 09:59 25 mg DAILY JEREMY Administration Hydromorphone HCl 1 mg 10/26/20 19:21 10/26/20 19:26 Hydromorphone 1 Mg/Ml Injection IV 10/26/20 19:22 1 mg STAT ONE Administration Hydromorphone HCl Confirm 10/26/20 19:25 Hydromorphone 1 Mg/Ml Injection Administered 10/26/20 19:26 Dose 1 mg .ROUTE .STK-MED ONE Hydromorphone HCl 1 mg 10/26/20 21:31 10/27/20 03:14 Hydromorphone 1 Mg/Ml Injection IV 10/31/20 21:30 1 mg Q4H PRN PRN Administration PAIN Sodium Chloride 1,000 mls @ 999 mls/hr 10/26/20 18:40 10/26/20 19:47 Sodium Chloride 0.9% 1000 Ml IV 10/26/20 19:40 Infused .Q1H1M STA Infusion Sodium Chloride Confirm 10/26/20 18:41 Sodium Chloride 0.9% 1000 Ml Administered 10/26/20 18:42 Dose 1,000 mls @ ud .ROUTE .STK-MED ONE Sodium Chloride 1,000 mls @ 999 mls/hr 10/26/20 20:31 10/26/20 20:32 Sodium Chloride 0.9% 1000 Ml IV 10/26/20 21:31 999 mls/hr .Q1H1M STA Administration Sodium Chloride Confirm 10/26/20 20:29 Sodium Chloride 0.9% 1000 Ml Administered 10/26/20 20:30 Dose 1,000 mls @ ud .ROUTE .STK-MED ONE Sodium Chloride 1,000 mls @ 100 mls/hr 10/26/20 21:45 10/28/20 20:27 Sodium Chloride 0.9% 1000 Ml IV 11/25/20 21:44 100 mls/hr .Q10H JEREMY Administration Levofloxacin/Dextrose 750 mg in 150 mls @ 100 mls/hr 10/27/20 10:00 Levofloxacin 750mg/150ml D5w IV 11/26/20 09:59 Q24H10 JEREMY Levofloxacin/Dextrose 750 mg in 150 mls @ 100 mls/hr 10/27/20 10:00 10/29/20 09:10 Levofloxacin 750mg/150ml D5w IV 11/26/20 09:59 100 mls/hr Q48H JEREMY Administration Lactated Ringer's Confirm 10/28/20 10:15 Lactated Ringers Administered 10/28/20 10:16 Dose 1,000 mls @ ud IV .STK-MED ONE Lactated Ringer's 1,000 mls @ 50 mls/hr 10/28/20 11:30 10/28/20 12:30 Lactated Ringers IV 11/27/20 11:29 50 mls/hr .Q20H JEREMY Administration Clindamycin HCl/Dextrose 900 mg in 50 mls @ 100 mls/hr 10/28/20 12:30 10/28/20 12:31 Clindamycin-D5w 900 Mg/50 Ml IV 10/28/20 12:59 100 mls/hr ONCALLTOOR JEREMY Administration Levofloxacin/Dextrose 500 mg in 100 mls @ 100 mls/hr 10/28/20 12:30 10/28/20 12:32 Levofloxacin 500mg/100ml D5w IV 11/27/20 12:29 100 mls/hr ONCALLTOOR JEREMY Administration Sodium Chloride 1,000 mls @ 50 mls/hr 10/28/20 21:15 10/29/20 00:48 Sodium Chloride 0.9% 1000 Ml IV 11/27/20 21:14 Not Given .Q20H JEREMY Insulin Glargine 35 unit 10/27/20 10:00 10/29/20 11:56 Lantus Insulin SQ 11/26/20 09:59 Not Given DAILY JEREMY Lidocaine HCl Confirm 10/28/20 15:24 Xylocaine-Mpf 2% 5 Ml Vial Administered 10/28/20 15:25 Dose 5 ml .ROUTE .STK-MED ONE Lisinopril 20 mg 10/27/20 10:00 10/29/20 09:10 Zestril 20 Mg PO 11/26/20 09:59 20 mg DAILY JEREMY Administration Metformin HCl 1,000 mg 10/27/20 10:00 10/29/20 08:24 Glucophage 500 Mg PO 11/26/20 09:59 1,000 mg BIDWM JEREMY Administration Morphine Sulfate Confirm 10/28/20 19:31 Morphine Sulfate 10 Mg/Ml Administered 10/28/20 19:32 Dose 10 mg .ROUTE .STK-MED ONE Morphine Sulfate 2 mg 10/28/20 21:08 10/29/20 07:35 Morphine Sulfate 2 Mg Inj IV 11/02/20 21:07 2 mg Q2H PRN PRN Administration PAIN Ondansetron HCl 4 mg 10/26/20 18:40 10/26/20 18:46 Zofran 4 Mg/2 Ml Vial IV 10/26/20 18:41 4 mg STAT ONE Administration Ondansetron HCl Confirm 10/26/20 18:41 Zofran 4 Mg/2 Ml Vial Administered 10/26/20 18:42 Dose 4 mg .ROUTE .STK-MED ONE Ondansetron HCl 4 mg 10/26/20 21:31 10/27/20 03:14 Zofran 4 Mg/2 Ml Vial IV 11/25/20 21:30 4 mg Q6H PRN PRN Administration NAUSEA/VOMITING Ondansetron HCl Confirm 10/28/20 15:24 Zofran 4 Mg/2 Ml Vial Administered 10/28/20 15:25 Dose 4 mg .ROUTE .STK-MED ONE Phenylephrine HCl Confirm 10/28/20 18:32 Phenylephrine Hcl Administered 10/28/20 18:33 Dose 10 mg .ROUTE .STK-MED ONE Polyethylene Glycol/Electrolytes Confirm 10/27/20 17:47 Golytely Solution 4000 Ml Administered 10/27/20 17:48 Dose 4,000 ml .ROUTE .STK-MED ONE Polyethylene Glycol/Electrolytes 4,000 ml 10/27/20 18:15 10/27/20 18:09 Golytely Solution 4000 Ml PO 10/27/20 18:16 4,000 ml ONCE@1400 ONE Administration Propofol Confirm 10/28/20 15:24 Diprivan 200 Mg/20 Ml Administered 10/28/20 15:25 Dose 200 mg IV .STK-MED ONE Rocuronium [place] Confirm 10/28/20 15:24 Zemuron 100 Mg/10 Ml Administered 10/28/20 15:25 Dose 40 mg .ROUTE .STK-MED ONE Simvastatin 20 mg 10/27/20 10:00 10/29/20 09:10 Zocor 20mg PO 11/26/20 09:59 20 mg DAILY JEREMY Administration Spironolactone 25 mg 10/27/20 10:00 10/29/20 09:10 Aldactone 25 Mg PO 11/26/20 09:59 25 mg DAILY JEREMY Administration Sugammadex Sodium Confirm 10/28/20 15:24 Bridion 200mg/2ml Administered 10/28/20 15:25 Dose 200 mg IV .STK-MED ONE Terazosin HCl 2 mg 10/27/20 22:00 10/28/20 21:12 Hytrin 1 Mg PO 11/26/20 21:59 2 mg HS JEREMY Administration Intake & Output (Last 24 hours) 10/27/20 10/28/20 10/29/20 10/30/20 11:59 11:59 11:59 11:59 Intake Total 1566 5573 1969 240 Output Total 2125 2450 1525 450 Balance -559 3123 444 -210 Weight 100 kg 100 kg Laboratory Results (Last 24 hours) 10/29/20 10/29/20 10/28/20 11:12 06:53 23:10 POC Glucometer 198 H 240 H 180 H Orders (Last 24 hours) Category Date Time Status Full Liquid Diet Diet 10/29/20 Breakfast Completed Soft Diet Diet 10/29/20 Lunch Completed Discharge Routine Discharge 10/29/20 Ordered POCT GLUCOSE Stat Lab 10/28/20 22:22 Completed POCT GLUCOSE Stat Lab 10/28/20 23:10 Completed POCT GLUCOSE Stat Lab 10/29/20 06:53 Completed POCT GLUCOSE Stat Lab 10/29/20 11:12 Completed Hydrocodone/APAP 5/325 [[place] 5/325 mg] Med 10/29/20 12:22 Discontinued 1 tab PO Q4H PRN PRN Patient Care Notes (Last 24 hours) 10/29/20 15:20 FINISHED STOCK INSPECTOR Note by Mell Cortes ambulated pt in hallway using rolling walker with stand by assist only. pt sitti ng up in bedside chair. Initialized on 10/29/20 15:20 - END OF NOTE 10/29/20 15:19 Nursing Note by Brooke Rodriguez I faxed appropriate paper work to [facility] at [phone]. I called to let them know he was going home at [phone]. Initialized on 10/29/20 15:19 - END OF NOTE 10/29/20 14:55 Nursing Note by KIRTI COX DR[facility]S OFFICE CALLED AND IS OK WITH PT GOING HOME TODAY, FOLLOW UP IN 1-2 WEEKS Initialized on 10/29/20 14:55 - END OF NOTE 10/29/20 10:07 Case Management Note by Janeth Baires PATIENT CONTINUES TO DENY ANY NEEDS REGARDING DC AT THIS TIME. HE PLANS TO RETUN HOME TO HIS APARTMENT ACROSS FROM HIS SON WITH [facility] Initialized on 10/29/20 10:07 - END OF NOTE - Vitals & Intake/Output Vital Signs: Vital Signs Temperature 98.1 F 10/29/20 12:00 Pulse Rate 72 10/29/20 12:00 Respiratory Rate 16 10/29/20 12:00 Blood Pressure 137/70 10/29/20 12:00 O2 Sat by Pulse Oximetry 96 10/29/20 12:00 Intake & Output: Intake & Output 10/27/20 10/28/20 10/29/20 10/30/20 11:59 11:59 11:59 11:59 Intake Total 1566 5573 1969 240 Output Total 2125 2450 1525 450 Balance -559 3123 444 -210 Weight 100 kg 100 kg - Lab Result Diagrams: 10/27/20 04:38 10/27/20 04:38 Lab Results-Last 24 Hrs: Lab Results-Last 24 Hours 10/28/20 10/29/20 10/29/20 Range/Units 23:10 06:53 11:12 POC Glucometer 180 H 240 H 198 H (74 to 106) mg/dL Micro Results-Entire Visit: Microbiology 10/26/20 21:00 Urine Culture - Final Catherized NO GROWTH Accuchecks Date 10/29/20 Time 11:30 - Procedures and Test Procedures and Tests throughout Hospitalization: Therapy Orders & Screens 10/28/20 21:20 Oxygen Nasal Cannula 2 lpm Comment: Diagnosis: abdominal pain for 2 days Discharge Exam General Appearance: no apparent distress, alert Neurologic Exam: alert, oriented x 3, cooperative, normal mood/affect, nml cerebellar function, sensation nml, No motor deficits Eye Exam: PERRL, EOMI, eyes nml inspection Ears, Nose, Throat Exam: normal ENT inspection, pharynx normal, moist mucous membranes Neck Exam: normal inspection, non-tender, supple, full range of motion Respiratory Exam: normal breath sounds, lungs clear, No respiratory distress Cardiovascular Exam: regular rate/rhythm, normal heart sounds Gastrointestinal/Abdomen Exam: soft, No tenderness, No mass Male Genitalia Exam: deferred Rectal Exam: deferred Back Exam: normal inspection, normal range of motion, No CVA tenderness, No vertebral tenderness Extremity Exam: normal inspection, normal range of motion Skin Exam: normal color, warm, dry Final Diagnosis/Problem List - Final Discharge Diagnosis/Problem (1) Cholelithiasis Status: Resolved (2) Biliary colic symptom Status: Resolved Code(s): K80.50 - CALCULUS OF BILE DUCT W/O CHOLANGITIS OR CHOLECYST W/O OBST (3) Urinary retention Status: Resolved Code(s): R33.9 - RETENTION OF URINE, UNSPECIFIED (4) Diabetes mellitus type II, uncontrolled Status: Chronic Code(s): E11.65 - TYPE 2 DIABETES MELLITUS WITH HYPERGLYCEMIA (5) CHF (congestive heart failure), NYHA class III Status: Chronic Code(s): I50.9 - HEART FAILURE, UNSPECIFIED - Discharge Discharge Date: 10/29/20 Disposition: HOME HEALTH SERVICE Condition: Stable Prescriptions: New Hydrocodone Bit/Acetaminophen [Hydrocodon-Acetaminophen 5-325] 1 each PO Q4HPRN PRN #20 tablet PRN Reason: Pain Continue Terazosin HCl 1 mg [Hytrin 1 mg] 2 mg PO HS #0 cap Spironolactone 25 mg [Aldactone 25 MG] 25 mg PO DAILY #0 tablet Simvastatin 20 mg PO DAILY #0 tablet Amlodipine Besylate [Norvasc] 2.5 mg PO DAILY Metformin HCl [Glucophage] 1,000 mg PO BID Insulin Glargine,Hum.rec.anlog [Tousae[place] Solostar] 35 unit SQ DAILY Lisinopril/Hydrochlorothiazide [Lisinopril-Hctz 20-25 mg Tab] 1 each PO DAILY Carbidopa/Levodopa [Sinemet 25-250 mg Tablet] 2 each PO TID Glimepiride 4 mg [Amaryl 4 mg] 4 mg PO DAILY Peg 400/Hypromellose/Glycerin [Dry Eye Relief Eye Drops] 1 drop OP Q4HPRN PRN PRN Reason: DRY EYES Instructions: Cholecystectomy (DC) Additional Instructions: [facility] HAS BEEN SET UP FOR YOU. THEY WILL MAKE CONTACT TO COME AND SEE YOU. THEIR PHONE NUMBER IS [phone] IF YOU NEED TO REACH THEM Follow up with: CARLI JONES [ACTIVE STAFF] - 11/10/20 11:10 am (t.h. office 2 weeks) MYRTLE DUGGAN MD [Primary Care Provider] - 11/05/20 11:00 am Forms: Discharge Instructions
== END 2020-10-29 15:45 | disposition home health service (06) ==
LOC: ED 18:31 → MED SURG 22:54 → INTOOBSV 22:54
PROVIDERS: ADMIT General Practice; ATTEND General Practice
DX: R10.32 Left lower quadrant pain (principal); K80.20 Calculus of gallbladder without cholecystitis without obstruction; K80.50 Calculus of bile duct without cholangitis or cholecystitis without obstruction; R33.9 Retention of urine, unspecified; E11.65 Type 2 diabetes mellitus with hyperglycemia; G20 Parkinson's disease; R11.2 Nausea with vomiting, unspecified; I50.9 Heart failure, unspecified; I10 Essential (primary) hypertension; E78.5 Hyperlipidemia, unspecified; Z79.01 Long term (current) use of anticoagulants
CPT/HCPCS: 0241U; 36000; 36415; 45384; 47562; 51702; 71045; 74176; 76705; 80053; 81001; 82150; 82947; 83036; 83605; 83690; 84484; 85025; 85610; 87086; 93005; 93041; 94762; 96360; 96374; 96375; 99285; G0328; G0378; Q3014; 82274; 88304; 88305; 99100; J1100; J1170; J1956; J2270; J2370; J2405; J2704; J3010; A9270-GY